=== PATIENT | female | born 1995 | race Caucasian/White ===

== ENCOUNTER 2019-05-24 19:55 | Emergency (ER) | payer OTHER, SELFPAY ==
[2019-05-24 19:59] VITALS: BP 129/78; PULSE 136; RESP 23; TEMP 37.9; O2SAT 99; BMI 43.9
--- NOTE | 2019-05-24 20:07 | DI.RAD.S_ITS ---
PROCEDURE: XR CHEST 2V INDICATIONS: cough for 3 weeks with chest heaviness TECHNIQUE: 2 views of the chest were acquired. COMPARISON: None. FINDINGS: Surgical changes and devices: None. Lungs and pleura: Lungs are clear. No pleural effusions or pneumothorax. Mediastinum: Mediastinal contours are normal. Heart size is normal. Bones and chest wall: No suspicious bony abnormalities. Soft tissues appear unremarkable. IMPRESSION: No acute cardiopulmonary abnormality identified. Dictated by: Ricardo Wright M.D. on 05/24/2019 at 20:36 Approved by: Ricardo Wright M.D. on 05/24/2019 at 20:37
[2019-05-24 20:44] LABS: Lactate (Lactic Acid) 1.2 mmol/L (0.7-2.1)
[2019-05-24 20:45] LABS: Influenza A - CEPHEID Flu A NEGATIVE (NEGATIVE); Influenza B - CEPHEID Flu B NEGATIVE (NEGATIVE)
[2019-05-24 20:45] LABS: Alanine Aminotransferase 49 IU/L (<35); Albumin 4.4 g/dL (3.5-5.0); Albumin Globulin Ratio 1.2 (1.0-2.8); Alkaline Phosphatase 90 U/L (38-126); Aspartate Aminotransferase 39 IU/L (14-36); BUN Creatinine Ratio 18.6 (6-22); Bilirubin Total 0.6 mg/dL (0.2-1.3); Blood Urea Nitrogen 13 mg/dL (7-17); Calcium 9.2 mg/dL (8.4-10.2); Carbon Dioxide 23 mmol/L (22-32); Chloride 105 mmol/L (98-107); Estimated Glomerular Filt Rate > 60.0 mL/min (>60); Globulin 3.6 g/dL (1.7-4.1); Glucose 105 mg/dL (70-100); HEMOLYSIS 26 (0-50); Potassium 3.9 mmol/L (3.4-5.1); Sodium 138 mmol/L (137-145)
[2019-05-24 20:49] LABS: Add Manual Diff / Slide Review NO; Basophils Absolute Auto 100 /uL (0-100); Basophils Percent Auto 0.6 % (0-2); Eosinophils Absolute Auto 100 /uL (0-450); Eosinophils Percent Auto 0.8 % (2-4); Hematocrit 41.7 % (36-46); Hemoglobin 14.2 g/dL (12.0-16.0); Lymphocytes Absolute Auto 1800 /uL (1100-4500); Lymphocytes Percent Auto 13.5 % (25-40); Mean Corpuscular Hemoglobin 32.4 PG (26-34); Mean Corpuscular Volume 95.4 fL (80-100); Monocytes Absolute Auto 800 /uL (0-900); Monocytes Percent Auto 6.5 % (3-14); Neutrophils Absolute Auto 10200 /uL (1500-7000); Neutrophils Percent Auto 78.6 % (50-75); Platelet Count 247 X10^3/uL (150-400); Red Blood Cell Count 4.38 X10^6/uL (4.0-5.2)
--- NOTE | 2019-05-24 20:59 | ED_ITS ---
HPI - URI/Sore Throat General Chief Complaint: Upper Respiratory Symptoms Stated Complaint: cough, chills Time Seen by Provider: 05/24/19 20:56 Source: patient Mode of arrival: Family Vehicle Limitations: no limitations History of Present Illness HPI Narrative: 24-year-old female smoker with morbid obesity presents with a chief complaint of 1-2 weeks of cough, usually dry but occasionally productive, fatigue and the low-grade fever. She denies runny nose or sore throat. She denies nausea, vomiting or diarrhea. She denies any shaking chills. She denies recent travel, surgery, injury or history of clot. MD Complaint: fever and cough Onset (ago): day(s) Duration: constant Severity: moderate Relieving factors: nothing Exacerbating factors: nothing Description of mucous: clear Able to tolerate fluids by mouth: Yes Associated symptoms: fever Treatments prior to arrival: none Related Data Previous Rx's Medication Instructions Recorded doxycycline hyclate 100 mg PO BID #20 tab 05/24/19 Allergies Allergy/AdvReac Type Severity Reaction Status Date / Time phenytoin [From Dilantin] Allergy Hives Verified 05/24/19 19:59 Review of Systems Constitutional Constitutional: Reports chills, Reports fatigue, Reports fever(s), Denies frequent falls, Denies lethargy and Denies weakness Eyes Eyes: Denies change in vision, Denies eye discharge, Denies irritation and Denies loss of vision ENT Ears, Nose, Mouth, and Throat: Denies change in voice, Denies dizziness, Denies neck pain, Denies sore throat and Denies throat swelling Cardiovascular Cardiovascular: Denies chest pain, Denies irregular heart rhythm, Denies lightheadedness, Denies palpitations, Denies dyspnea, Denies dyspnea on exertion and Denies orthopnea Respiratory Respiratory: Reports cough, Denies dyspnea, Denies dyspnea on exertion and Denies wheezing Gastrointestinal Gastrointestinal: Denies abdominal pain, Denies change in bowel habits, Denies diarrhea, Denies nausea and Denies vomiting Genitourinary Genitourinary: Denies hematuria, Denies flank pain, Denies urinary incontinence and Denies urinary urgency Musculoskeletal Musculoskeletal: Denies back pain, Denies muscle weakness, Denies neck pain, Denies numbness and Denies tingling Integumentary/Breasts Skin/Breast: Denies pruritus, Denies erythema, Denies rash and Denies wounds Neurologic Neurologic: Denies behavioral changes, Denies confusion, Denies dizziness, Denies frequent falls, Denies loss of vision, Denies numbness, Denies tingling and Denies weakness Psychiatric Psychiatric: Denies anxiety, Denies behavioral changes, Denies confusion, Denies depression, Denies homicidal ideation and Denies suicidal ideation Endocrine Endocrine: Reports fatigue, Denies flushing and Denies palpitations Hematologic/Lymphatic Hematologic/Lymphatic: Denies easy bruising Allergic/Immunologic Allergic/Immunologic: Denies urticaria, Denies throat swelling and Denies wheezing Patient History Social History Smoking Status: Current some day smoker Smoking Status: Current some day smoker Substance Use Type: does not use Exam Narrative Exam Narrative: GENERAL: [24] year old patient appears stated age. Morbidly obese, well-developed patient, in mild distress. HEAD: Atraumatic. Normocephalic. EYES: Pupils equal round and reactive. Extraocular motions intact. No scleral icterus. No injection or drainage. ENT: Nose without bleeding, purulent drainage. Throat without erythema, tonsillar hypertrophy or exudate. Airway patent. NECK: Trachea midline. Non tender CARDIOVASCULAR: Tachycardic but regular rhythm without murmurs, gallops, or rubs. RESPIRATORY: Clear to auscultation. Breath sounds equal bilaterally. No wheezes, rales, or rhonchi. GASTROINTESTINAL: Abdomen soft, non-tender, nondistended. EXTREMITIES: No edema or joint tenderness. BACK: Nontender without deformity or crepitance. No flank tenderness. NEURO: AOx3. SKIN: No rash or erythema of visible areas Initial Vital Signs Initial Vital Signs: Vital Signs Temperature 100.2 F H 05/24/19 19:59 Pulse Rate 136 H 05/24/19 19:59 Respiratory Rate 23 05/24/19 19:59 Blood Pressure 129/78 05/24/19 19:59 Pulse Oximetry 99 05/24/19 19:59 Course Course Course Narrative: Pulmonary embolism considered, it D-dimer very slightly elevated but still below the cutoff of 500. Chest x-ray is unremarkable but given symptoms and duration of symptoms it seems most reasonable to treat for an atypical pneumonia. Heart rate is improved from the 130s to 140s down to about 115 after 1 L, 2nd L ordered Orders Ordered: ED Orders 05/24/19 20:05 Influenza A & B (PCR) Stat 05/24/19 20:07 XR chest 2V Stat EKG-12 Lead Routine 05/24/19 20:12 Measure peak expiratory flow ONCE RT Consult Eval and Treat Now 05/24/19 20:25 Complete Blood Count AUTO DIFF Stat Comprehensive Metabolic Panel Stat D Dimer Stat Lactate (Lactic Acid) Stat Discontinued Medications Acetaminophen (Tylenol) 975 mg PO NOW ONE Stop: 05/24/19 22:06 Last Admin: 05/24/19 22:07 Dose: 975 mg Documented by: ELVIA Doxycycline Hyclate (Vibramycin) 100 mg PO NOW ONE Stop: 05/24/19 21:54 Last Admin: 05/24/19 22:01 Dose: 100 mg Documented by: ELVIA Sodium Chloride (Normal Saline 0.9%) 1,000 mls @ 1,000 mls/hr IV BOLUS ONE Stop: 05/24/19 22:23 Last Infusion: 05/24/19 22:30 Dose: 0 mls/hr Documented by: Admin: 05/24/19 21:26 Dose: 1,000 mls/hr Documented by: ELVIA Sodium Chloride (Normal Saline 0.9%) 1,000 mls @ 1,000 mls/hr IV BOLUS ONE Stop: 05/24/19 23:36 Last Infusion: 05/24/19 23:51 Dose: 0 mls/hr Documented by: Admin: 05/24/19 22:51 Dose: 1,000 mls/hr Documented by: ELVIA Vital Signs Vital signs: Vital Signs - 8 hr 05/24/19 19:59 05/24/19 21:20 05/24/19 22:07 Temperature 100.2 F H 100.6 F H Pulse Rate 136 H 133 H Respiratory Rate 23 18 Blood Pressure 129/78 Blood Pressure [Left Arm] 159/90 H Pulse Oximetry 99 96 05/24/19 22:13 Temperature Pulse Rate 117 H Respiratory Rate 18 Blood Pressure Blood Pressure [Left Arm] 159/90 H Pulse Oximetry 95 MDM - URI/Sore Throat Lab Data Result diagrams: 05/24/19 20:25 05/24/19 20:25 Labs: Lab Results 05/24/19 05/24/19 05/24/19 Range/Units 20:05 20:25 20:25 WBC 13.0 H (4.5-11.0) X10^3/uL RBC 4.38 (4.0-5.2) X10^6/uL Hgb 14.2 (12.0-16.0) g/dL Hct 41.7 (36-46) % MCV 95.4 (80-100) fL MCH 32.4 (26-34) PG MCHC 34.0 (30-36) % RDW 13.0 (11.6-14.8) % Plt Count 247 (150-400) X10^3/uL Neut % (Auto) 78.6 H (50-75) % Lymph % (Auto) 13.5 L (25-40) % Davison % (Auto) 6.5 (3-14) % Eos % (Auto) 0.8 L (2-4) % Baso % (Auto) 0.6 (0-2) % Neut # (Auto) 96600 H (3993-9536) /uL Lymph # (Auto) 1800 (9451-9701) /uL Davison # (Auto) 800 (0-900) /uL Eos # (Auto) 100 (0-450) /uL Baso # (Auto) 100 (0-100) /uL D-Dimer (<230) ng/mL Sodium 138 (137-145) mmol/L Potassium 3.9 (3.4-5.1) mmol/L Chloride 105 (98-107) mmol/L Carbon Dioxide 23 (22-32) mmol/L BUN 13 (7-17) mg/dL Creatinine 0.70 (0.52-1.04) mg/dL Estimated GFR > 60.0 (>60) mL/min BUN/Creatinine Ratio 18.6 (6-22) Glucose 105 H (70-100) mg/dL Lactate (0.7-2.1) mmol/L Calcium 9.2 (8.4-10.2) mg/dL Total Bilirubin 0.6 (0.2-1.3) mg/dL AST 39 H (14-36) IU/L ALT 49 H (<35) IU/L Alkaline Phosphatase 90 (38-126) U/L Total Protein 8.0 (6.3-8.2) g/dL Albumin 4.4 (3.5-5.0) g/dL Globulin 3.6 (1.7-4.1) g/dL Albumin/Globulin Ratio 1.2 (1.0-2.8) Influenza A (RT-PCR) Flu a negative (NEGATIVE) Influenza B (RT-PCR) Flu b negative (NEGATIVE) 05/24/19 05/24/19 Range/Units 20:25 20:25 WBC (4.5-11.0) X10^3/uL RBC (4.0-5.2) X10^6/uL Hgb (12.0-16.0) g/dL Hct (36-46) % MCV (80-100) fL MCH (26-34) PG MCHC (30-36) % RDW (11.6-14.8) % Plt Count (150-400) X10^3/uL Neut % (Auto) (50-75) % Lymph % (Auto) (25-40) % Davison % (Auto) (3-14) % Eos % (Auto) (2-4) % Baso % (Auto) (0-2) % Neut # (Auto) (6228-3580) /uL Lymph # (Auto) (1659-9654) /uL Davison # (Auto) (0-900) /uL Eos # (Auto) (0-450) /uL Baso # (Auto) (0-100) /uL D-Dimer 247 H (<230) ng/mL Sodium (137-145) mmol/L Potassium (3.4-5.1) mmol/L Chloride (98-107) mmol/L Carbon Dioxide (22-32) mmol/L BUN (7-17) mg/dL Creatinine (0.52-1.04) mg/dL Estimated GFR (>60) mL/min BUN/Creatinine Ratio (6-22) Glucose (70-100) mg/dL Lactate 1.2 (0.7-2.1) mmol/L Calcium (8.4-10.2) mg/dL Total Bilirubin (0.2-1.3) mg/dL AST (14-36) IU/L ALT (<35) IU/L Alkaline Phosphatase (38-126) U/L Total Protein (6.3-8.2) g/dL Albumin (3.5-5.0) g/dL Globulin (1.7-4.1) g/dL Albumin/Globulin Ratio (1.0-2.8) Influenza A (RT-PCR) (NEGATIVE) Influenza B (RT-PCR) (NEGATIVE) Discharge Plan Departure Patient Disposition: Home Clinical Impression: Atypical pneumonia Discharge Date/Time: 05/24/19 23:52 Instructions: DI for Atypical Pneumonia Activity Restrictions/Additional Instructions: *You have been diagnosed with [atypical pneumonia] *What to do: *Take medications as directed *Follow up with your primary care provider in 2-3 days, call for an appointment. Let them know you were seen in the Emergency Department and that we ask that you be seen in follow up *Return to ER if you should have any new, worsening or concerning symptoms Prescriptions: New doxycycline hyclate 100 mg tablet 100 mg PO BID Qty: 20 RF: 0 Stand Alone Forms: Work/School Release
[2019-05-24 21:20] VITALS: BP 159/90; PULSE 133; RESP 18; O2SAT 96
[2019-05-24] MEDS: SODIUM CHLORIDE 0.9% 1,000 ML 1000 ML IV ×2 (21:26→22:51)
[2019-05-24 21:42] LABS: D Dimer 247 ng/mL (<230)
[2019-05-24] MEDS: DOXYCYCLINE HYCLATE 100 MG TABLET PO (22:01)
[2019-05-24 22:07] VITALS: TEMP 38.1
[2019-05-24] MEDS: ACETAMINOPHEN 325 MG TABLET 975 MG PO (22:07)
[2019-05-24 22:13] VITALS: BP 159/90; PULSE 117; RESP 18; O2SAT 95
== END 2019-05-24 23:52 | disposition home or self-care (01) ==
PROVIDERS: Emergency Provider Emergency Medicine
DX: J18.9 Pneumonia, unspecified organism (principal)
CPT/HCPCS: 36415; 71046; 80053; 83605; 85025; 85379; 87502; 93005; 96360; 96361; 99284; 99285

== ENCOUNTER 2019-06-10 18:31 | Emergency (ER) | payer OTHER, SELFPAY ==
--- NOTE | 2019-06-10 18:54 | DI.RAD.S_ITS ---
PROCEDURE: XR FOOT RT MIN 3V INDICATIONS: right ankle twisted in a pot hole TECHNIQUE: 3 views of the foot were acquired. COMPARISON: None. FINDINGS: Bones: No fractures or dislocations. No suspicious bony lesions. Soft tissues: No tibiotalar joint effusion. Achilles tendon appears normal. IMPRESSION: No gross acute right foot fracture or dislocation. Dictated by: Juan Jose Clancy M.D. on 06/10/2019 at 19:14 Approved by: Juan Jose Clancy M.D. on 06/10/2019 at 19:14
[2019-06-10 18:55] VITALS: BP 170/94; PULSE 87; RESP 16; TEMP 37.4; O2SAT 99; BMI 46.0
--- NOTE | 2019-06-10 19:18 | ED.LOWEXIN ---
HPI - Extremity Injury (Lower) General Chief Complaint: Extremity Injury, Lower Stated Complaint: twisted ankle-right Time Seen by Provider: 06/10/19 19:18 Source: patient Mode of arrival: Family Vehicle Limitations: no limitations Related Data Previous Rx's Medication Instructions Recorded doxycycline hyclate 100 mg PO BID #20 tab 05/24/19 Allergies Allergy/AdvReac Type Severity Reaction Status Date / Time phenytoin [From Dilantin] Allergy Hives Verified 06/10/19 18:59 Patient History Social History Smoking Status: Former smoker Smoking Status: Former smoker alcohol intake frequency: holidays/special occasions only Substance Use Type: does not use Exam Initial Vital Signs Initial Vital Signs: Vital Signs Temperature 99.3 F 06/10/19 18:55 Pulse Rate 87 06/10/19 18:55 Respiratory Rate 16 06/10/19 18:55 Blood Pressure 170/94 H 06/10/19 18:55 Pulse Oximetry 99 06/10/19 18:55 Course Orders Ordered: ED Orders 06/10/19 18:54 XR foot RT min 3V Stat Vital Signs Vital signs: Vital Signs - 8 hr 06/10/19 18:55 Temperature 99.3 F Pulse Rate 87 Respiratory Rate 16 Blood Pressure 170/94 H Pulse Oximetry 99 Discharge Plan Departure Prescriptions: No Action doxycycline hyclate 100 mg tablet 100 mg PO BID Qty: 20 RF: 0
[2019-06-10 19:35] VITALS: PULSE 72
--- NOTE | 2019-06-10 19:38 | DI.RAD.S_ITS ---
PROCEDURE: XR ANKLE RT MIN 3V INDICATIONS: s/p inverted foot, pain in lateral ankle TECHNIQUE: 3 views of the ankle were acquired. COMPARISON: None. FINDINGS: Bones: No fractures or dislocations. Ankle mortise is normally aligned. No suspicious bony lesions. Soft tissues: Lateral ankle soft tissue swelling is seen. No tibiotalar joint effusion. Achilles tendon appears normal. IMPRESSION: Lateral ankle soft tissue swelling. No gross acute ankle fracture or dislocation. Dictated by: Juan Jose Clancy M.D. on 06/10/2019 at 19:53 Approved by: Juan Jose Clancy M.D. on 06/10/2019 at 19:54
[2019-06-10] MEDS: ACETAMINOPHEN 325 MG TABLET 650 MG PO (19:50)
[2019-06-10] MEDS: IBUPROFEN 400 MG TABLET 800 MG PO (19:50)
--- NOTE | 2019-06-10 19:57 | ED_ITS ---
HPI - Extremity Injury (Lower) <JEAN HoffP - Last Filed: 06/10/19 20:17> General Chief Complaint: Extremity Injury, Lower Stated Complaint: twisted ankle-right Time Seen by Provider: 06/10/19 19:18 Source: patient Mode of arrival: Family Vehicle Limitations: no limitations History of Present Illness HPI Narrative: This is a 24-year-old female, former smoker, who presents to ED with significant other with chief complain of right lateral ankle discomfort. Patient reports affected foot got stuck in a pothole and accidentally inverted her foot and heard and felt popping sound with grinding sensation in her left ankle. When patient attempted to remove her right foot from a pothole, it felt stuck and when it finally was removed from a pothole and forcefully landed on of right heel and felt/her popping noise and grinding sensation again. Patient reports at rest pain is not significant but when she bears her weight fully and when it is touched the pain increases. Patient reports intact sensation and is able to move her toes. Patient reports she has history of right ankle injury at age 13 but does not report residual problems. Patient denies falling on her head, losing consciousness, pain in her hips or knees. Related Data Previous Rx's Medication Instructions Recorded doxycycline hyclate 100 mg PO BID #20 tab 05/24/19 Allergies Allergy/AdvReac Type Severity Reaction Status Date / Time phenytoin [From Dilantin] Allergy Hives Verified 06/10/19 18:59 Review of Systems <JEAN HoffP - Last Filed: 06/10/19 20:17> Review of Systems Narrative: General: Denies fever, chills, fatigue, malaise, sweats. HEENT: Denies sinus pain, ear pain, sore throat, difficulty swallowing, dizziness. Respiratory: Denies dyspnea, cough, wheezing, hemoptysis, sputum. Cardiovascular: Denies chest pain, palpitations, orthopnea, edema. Gastrointestinal: Denies nausea, vomiting, abdominal pain, diarrhea, constipation, melena. : Denies dysuria, frequency, incontinence, hematuria, urinary retention. Musculoskeletal: See HPI Skin: Denies rash, skin lesions, or other. Neurologic: Denies weakness, headache, numbness, change in speech, confusion, seizures, incoordination. Psychiatric: No concerning psychosocial issues. 12-point review of systems is negative except for those stated above. Patient History <DOUG Hoff - Last Filed: 06/10/19 20:17> Medical History Depression (Acute) Hypertension (Acute) Tachycardia (Acute) Tonsillitis (Acute) Social History Smoking Status: Former smoker Smoking Status: Former smoker alcohol intake frequency: holidays/special occasions only Substance Use Type: does not use Exam <DOUG Hoff - Last Filed: 06/10/19 20:17> Narrative Exam Narrative: General appearance: well developed, well nourished, in no acute distress. Head: normocephalic, atraumatic, no scalp lesions, non-tender. ENT: Hearing grossly intact. Nose without bleeding, purulent discharge or deviation. Mucous membrane moist, no mucosal lesion. Throat without erythema, tonsillar hypertrophy or exudate. Uvula in midline, airway patent. Neck/Thyroid: neck supple, full range of motion, no visible masses or meningeal signs. No JVD, non-tender without lymphadenopathy. Skin: no suspicious rashes, lesions over visible areas. Warm and dry and appropriate color for ethnicity. Heart: no clubbing, no cyanosis, no edema. S1 and S2 normal. RRR w/o murmurs, clicks, or bruits. Lungs: Breathing even and unlabored. No stridor. No accessory muscles used. Able to speak in full sentences. Chest: normal shape and expansion. Abdomen: non-obese, non-distended. Neurologic: alert and oriented. Cognitive exam, THEATRE DIRECT[employer] and PNS grossly intact on informal exam. Psych: good eye contact, normal affect. Initial Vital Signs Initial Vital Signs: Vital Signs Temperature 99.3 F 06/10/19 18:55 Pulse Rate 87 06/10/19 18:55 Respiratory Rate 16 06/10/19 18:55 Blood Pressure 170/94 H 06/10/19 18:55 Pulse Oximetry 99 06/10/19 18:55 Extrem Right lower extremity: hip/thigh Details: normal ROM; no tenderness and no swelling, knee Details: normal to inspection and normal ROM; no tenderness and no swelling, ankle Details: tenderness Location: of the lateral malleolus, s welling Details: laterally, abnormal ROM Details: pain with active ROM and pain with passive ROM and achilles tendon exam abnormal; no unusual warmth, no abrasions, no lacerations, no ecchymosis and no penetrating wound and foot Details: normal capillary refill, normal to inspection, toes with normal ROM, no edema, vascular exam Details: dorsalis pedis pulse present and normal capillary refill and motor-sensory exam Details: light-touch normal; no tenderness <Latrell Bennett DO - Last Filed: 06/11/19 03:33> Initial Vital Signs Initial Vital Signs: Vital Signs Temperature 99.3 F 06/10/19 18:55 Pulse Rate 87 06/10/19 18:55 Respiratory Rate 16 06/10/19 18:55 Blood Pressure 170/94 H 06/10/19 18:55 Pulse Oximetry 99 06/10/19 18:55 Procedures <DOUG Hoff - Last Filed: 06/10/19 20:17> Orthopedic Splinting/Casting Injury #1: Side: right Lower Extremity Injury Location: ankle Lower Extremity Immobilizer: [employer]Cast Other Orthopedic Equipment: crutches Post splinting neuro exam: intact Post splinting vascular exam: intact Placed by: Nursing Scores <DOUG Hoff Last Filed: 06/10/19 20:17> GCS [place] coma scale eye opening: Spontaneous [place] coma scale verbal response: Orientated [place] coma scale motor response: Obey commands [place] coma scale total score: 15 Course <DOUG Hoff Last Filed: 06/10/19 20:17> Orders Ordered: ED Orders 06/10/19 18:54 XR foot RT min 3V Stat 06/10/19 19:38 XR ankle RT min 3V Stat Discontinued Medications Acetaminophen (Tylenol) 650 mg PO NOW ONE Stop: 06/10/19 19:39 Last Admin: 06/10/19 19:50 Dose: 650 mg Documented by: TYREE Ibuprofen (Advil) 800 mg PO NOW ONE Stop: 06/10/19 19:39 Last Admin: 06/10/19 19:50 Dose: 800 mg Documented by: TYREE Vital Signs Vital signs: Vital Signs - 8 hr 06/10/19 19:35 06/10/19 20:38 Pulse Rate 84 Pulse Rate [Dorsalis Pedis] 72 Respiratory Rate 16 Blood Pressure [Left Arm] 158/88 H Pulse Oximetry 98 <Latrell Bennett DO - Last Filed: 06/11/19 03:33> Orders Ordered: ED Orders 06/10/19 18:54 XR foot RT min 3V Stat 06/10/19 19:38 XR ankle RT min 3V Stat Discontinued Medications Acetaminophen (Tylenol) 650 mg PO NOW ONE Stop: 06/10/19 19:39 Last Admin: 06/10/19 19:50 Dose: 650 mg Documented by: TYREE Ibuprofen (Advil) 800 mg PO NOW ONE Stop: 06/10/19 19:39 Last Admin: 06/10/19 19:50 Dose: 800 mg Documented by: TYREE Vital Signs Vital signs: Vital Signs - 8 hr 06/10/19 19:35 06/10/19 20:38 Pulse Rate 84 Pulse Rate [Dorsalis Pedis] 72 Respiratory Rate 16 Blood Pressure [Left Arm] 158/88 H Pulse Oximetry 98 MDM - Extremity Injury (Lower) <DOUG Hoff - Last Filed: 06/10/19 20:17> Differential Diagnosis Differential diagnosis: Likely ankle sprain and strain and ankle fracture Medical Records Attestation: I reviewed the patient's medical records. Imaging Data XR-Foot RT: Radiologist's Impression: [place] [address] XRay Report Signed Patient: Vita Hernandez [facility]#: [id number] : 1995Acct:[id number] Age/Sex: 24 / FDate of Service: 06/10/19 Loc: ED Accession Number: [id number] Procedure: XR foot RT min 3V Ordering Provider: Latrell Bennett D.O. PROCEDURE: XR FOOT RT MIN 3V INDICATIONS: right ankle twisted in a pot hole TECHNIQUE: 3 views of the foot were acquired. COMPARISON: None. FINDINGS: Bones: No fractures or dislocations. No suspicious bony lesions. Soft tissues: No tibiotalar joint effusion. Achilles tendon appears normal. IMPRESSION: No gross acute right foot fracture or dislocation. Dictated by: Juan Jose Clancy M.D. on 06/10/2019 at 19:14 Approved by: Juan Jose Clancy M.D. on 06/10/2019 at 19:14 XR-Ankle RT: Radiologist's Impression: [address] [address] XRay Report Signed Patient: Vita Hernandez [facility]#: [id number] : 1995Acct:[id number] Age/Sex: 24 / FDate of Service: 06/10/19 Loc: ED Accession Number: [id number] Procedure: XR ankle RT min 3V Ordering Provider: Adair Cordova PROCEDURE: XR ANKLE RT MIN 3V INDICATIONS: s/p inverted foot, pain in lateral ankle TECHNIQUE: 3 views of the ankle were acquired. COMPARISON: None. FINDINGS: Bones: No fractures or dislocations. Ankle mortise is normally aligned. No suspicious bony lesions. Soft tissues: Lateral ankle soft tissue swelling is seen. No tibiotalar joint effusion. Achilles tendon appears normal. IMPRESSION: Lateral ankle soft tissue swelling. No gross acute ankle fracture or dislocation. Dictated by: Juan Jose Clancy M.D. on 06/10/2019 at 19:53 Approved by: Juan Jose Clancy M.D. on 06/10/2019 at 19:54 MDM Narrative Medical decision making narrative: This is 24-year-old female status post inverted her right foot after stuck in a pothole. Patient reports maximum tenderness to palpate in lateral malleolar region and swelling noticed. Dorsal pedal pulse on right foot distal to injury site is intact. Patient is able to move toes without difficulty. X-rays on right foot and ankle does not show acute findings such as fractures or dislocation. Patient was treated with Tylenol and Motrin while in ED for pain along ice packs. Discussed RICE therapy for inflammation and discomfort and patient discharged to home with prefabricated ankle splint and crutches for mobility. Return precautions were discussed with the patient and patient provided with a work off note for 2 days. Patient verbalized understanding and in agreement with treatment plan. Discharge Plan Departure Patient Disposition: Home Clinical Impression: Ankle sprain and strain Discharge Date/Time: 06/10/19 20:38 Instructions: DI for Ankle Sprain Activity Restrictions/Additional Instructions: You have been diagnosed with [right ankle sprain. There is no acute findings according to ankle and foot x-ray tests today. Please use RICE therapy-rest, cool pack for next 24-48 hrs, compression by using splint that has been provided and elevated affected limb]. What to do: *Take your medications as directed. You can continue to use Tylenol and or Motrin as needed for discomfort. Ibuprofen 400 mg to 600 mg 3 to 4 times a day as needed for discomfort and inflammation. Tylenol 650-1000 mg up to 4 times a day as needed for discomfort. *Follow up with your primary care provider in 2-3 days, call for an appointment. Let them know you were seen in the ED and that we asked you to be seen in follow up. If pain persists greater than 10 days to 2 weeks, please follow up with her primary care physician and get repeated x-ray test on affected ankle. After acute pain has subsided, please stretching affected ankle. *Return to ED if you have any new, worsening, or concerning symptoms, such as [chest pain, breathing difficulty, unable to tolerate fluids, weakness/numbness/tingling on affected foot or any acute concerns]. Prescriptions: No Action doxycycline hyclate 100 mg tablet 100 mg PO BID Qty: 20 RF: 0 Referrals: [facility] [Outside] Stand Alone Forms: Work Release Note
[2019-06-10 20:38] VITALS: BP 158/88; PULSE 84; RESP 16; O2SAT 98
== END 2019-06-10 20:38 | disposition home or self-care (01) ==
PROVIDERS: Emergency Provider Nurse Practitioner Family
DX: S93.401A Sprain of unspecified ligament of right ankle, initial encounter (principal); S96.911A Strain of unspecified muscle and tendon at ankle and foot level, right foot, initial encounter
CPT/HCPCS: 73610; 73630; 99283; 99284

== ENCOUNTER 2019-08-29 18:12 | Emergency (ER) | payer OTHER, SELFPAY ==
[2019-08-29 18:19] VITALS: BP 184/98; PULSE 81; RESP 20; O2SAT 98; BMI 44.3
--- NOTE | 2019-08-29 18:22 | DI.RAD.S_ITS ---
PROCEDURE: XR HAND LT MIN 3V INDICATIONS: swelling TECHNIQUE: 3 views of the hand(s) acquired. COMPARISON: None. FINDINGS: Bones: There is a fracture in the 5th metacarpal proximally with mild impaction and slight radial sided and angulation. There is suspected extension to the 5th carpometacarpal joint. Soft tissues: There is soft tissue swelling along the ulnar aspect of the hand. IMPRESSION: 1. Fracture of the 5th metacarpal proximally with suspected articular extension. Dictated by: Eric Beard M.D. on 08/29/2019 at 19:08 Approved by: Eric Beard M.D. on 08/29/2019 at 19:10
--- NOTE | 2019-08-29 18:23 | DI.RAD.S_ITS ---
PROCEDURE: XR FOREARM RT 2V INDICATIONS: swelling TECHNIQUE: 2 views of the forearm were acquired. COMPARISON: [facility], CR, XR ANKLE RT MIN 3V, 06/10/2019, 19:35. [facility], CR, XR HAND LT MIN 3V, 08/29/2019, 18:26. FINDINGS: Bones: No fractures or dislocation in the forearm. A mildly impacted fracture of the base of the 5th metacarpal is noted on the current study. Soft tissues: No suspicious soft tissue calcifications or masses. IMPRESSION: 1. No fracture or dislocation in the forearm. 2. Fracture of the 5th metacarpal base as described on the concurrent study of the hand. Dictated by: Eric Beard M.D. on 08/29/2019 at 19:04 Approved by: Eric Beard M.D. on 08/29/2019 at 19:08
--- NOTE | 2019-08-29 18:35 | PC.NURSE ---
tripped and fell, obtained left hand deformity/swelling/pain, denies head injury denies loc/neck pain also with left knee superficial abrasion, with full range of motion. on arrival left knee irrigated with ns, tolerated well. left hand irrigated with ns, tolerated welll. ice pack applied/elevation.
--- NOTE | 2019-08-29 18:41 | ED_ITS ---
HPI - Extremity Injury (Upper) <Denisha Yung PA-C - Last Filed: 08/29/19 21:52> General Chief Complaint: Extremity Injury, Upper Stated Complaint: Fell/ Hurt left hand/wrist Time Seen by Provider: 08/29/19 18:41 Source: patient Mode of arrival: Ambulatory Limitations: no limitations History of Present Illness HPI narrative: This is an obese 24-year-old with hx of HTN who presents to the emergency department shortly after she fell injuring her left hand. She was walking on the sidewalk and there was an area that was uneven concrete that she caught with her foot which caused her to fall forward and she did not want to land directly on her face so she put her left hand and arm out to catch her fall and took most of the weight with the outside lateral edge of her left hand. She had immediate pain and since then has had some tingling sensation in the tips of her fingers like ?when your arm falls asleep when you sleep on top of it? she has also had some swelling in the area of her upper left hand and a little bit into her wrist. It is painful to move her fingers and slightly painful to move her wrist although she is able to do so. She was self splinting her arm/hand on the drive up from [place]. She denies numbness, changes sensation, prodrome of dizziness or palpitations, hitting her head, or any other injury. This is an isolated complaint and she has otherwise been in her normal state of health. complaint: injury to: left and hand Onset (ago): minute(s) (40) Other Extremity Injury: Left: hand Other injuries: none Handedness: right Place: outdoors Severity: moderate Severity scale (1-10): 3 Relieving factors: cold therapy, immobilization and rest Exacerbating factors: movement of extremity Context: fall Associated symptoms: denies other symptoms Related Data Previous Rx's Medication Instructions Recorded doxycycline hyclate 100 mg PO BID #20 tab 05/24/19 Allergies Allergy/AdvReac Type Severity Reaction Status Date / Time phenytoin [From Dilantin] Allergy Hives Verified 06/10/19 18:59 Review of Systems <Denisha Yung PA-C - Last Filed: 08/29/19 21:52> Review of Systems Narrative: GENERAL: Denies chills, fatigue, malaise, fever, sweats. HEENT: Denies sinus pain, ear pain, sore throat, difficulty swallowing, dizziness. RESPIRATORY: Denies dyspnea, cough, wheezing, hemoptysis, sputum. CARDIOVASCULAR: Denies chest pain, palpitations, orthopnea, edema MUSCULOSKELETAL: Positive for pain in her left hand along with some tingling sensation in her fingertips in some sharp pain in her hand when she presses on it. Denies weakness. SKIN: Denies rash, skin lesions, or other NEUROLOGIC: Denies weakness, headache, numbness, change in speech, confusion, seizures, incoordination. PSYCHIATRIC: No concerning psychosocial issues. 12 point review of systems is negative except for those stated above Patient History <Denisha Yung PA-C - Last Filed: 08/29/19 21:52> Medical History Depression (Acute) Hypertension (Acute) Tachycardia (Acute) Tonsillitis (Acute) Social History Smoking Status: Former smoker Smoking Status: Former smoker alcohol intake frequency: holidays/special occasions only Substance Use Type: does not use Exam <Denisha Yung PA-C - Last Filed: 08/29/19 21:52> Narrative Exam Narrative: GENERAL: 24 year old patient appears stated age. Well-nourished, morbidly patient, in mild distress second to pain. HEAD: Atraumatic. Normocephalic. EYES: Pupils equal round and reactive. Extraocular motions intact. No scleral icterus. No injection or drainage. ENT: Nose without bleeding, purulent drainage. Lips/oropharynx atraumatic, Airway patent. NECK: Trachea midline. Non tender CARDIOVASCULAR: Regular rate and rhythm without murmurs, gallops, or rubs. RESPIRATORY: Clear to auscultation. Breath sounds equal bilaterally. No wheezes, rales, or rhonchi. EXTREMITIES: There is swelling of the medial proximal hand over the area of the 5th metacarpal and wrist. There is slight bluish bruising visible on the anter ior medial palm over the area of the 4th and 5th metacarpals. There is tenderness over the 4th and 5th metacarpals and tenderness with manipulation of the carpals and distal ulna, with bony tenderness and associated sharp pain over the 5th metacarpal. There is very superficial abrasion of the skin of the left medial wrist and left proximal hand. Otherwise no edema or joint tenderness. Range of motion of the left wrist elbow and shoulder is intact, range of motion of 1st 2nd and 3rd digits is also intact with slight pain with flexion of the 3rd digit. Significant pain with movement of the 4th and 5th digits. Capillary refill in all digits of the affected hand is less than 2 seconds, sensation is intact. BACK: Nontender without deformity or crepitance. No flank tenderness. NEURO: AOx3. SKIN: No rash or erythema of visible areas Initial Vital Signs Initial Vital Signs: Vital Signs Pulse Rate 81 08/29/19 18:19 Respiratory Rate 20 08/29/19 18:19 Blood Pressure 184/98 H 08/29/19 18:19 Pulse Oximetry 98 08/29/19 18:19 <Lisa De La Torre MD - Last Filed: 08/29/19 23:05> Initial Vital Signs Initial Vital Signs: Vital Signs Pulse Rate 81 08/29/19 18:19 Respiratory Rate 20 08/29/19 18:19 Blood Pressure 184/98 H 08/29/19 18:19 Pulse Oximetry 98 08/29/19 18:19 Course <Denisha Yung PA-C - Last Filed: 08/29/19 21:52> Orders Ordered: ED Orders 08/29/19 18:22 XR hand LT min 3V Stat 08/29/19 18:23 XR forearm LT 2V Stat 08/29/19 19:25 Consult to Orthopedic Surgery Stat Discontinued Medications Acetaminophen (Tylenol) 650 mg PO Q6HR PRN PRN Reason: Fever/Mild Pain (1-3) Last Admin: 08/29/19 19:27 Dose: 650 mg Documented by: MMCFARL Ibuprofen (Advil) 800 mg PO NOW ONE Stop: 08/29/19 19:21 Last Admin: 08/29/19 19:27 Dose: 800 mg Documented by: MMCFARL Lidocaine/Sodium Bicarbonate (Buffered Lidocaine 10 Ml Syr) 10 ml INJ NOW ONE Stop: 08/29/19 20:12 Consultations Consultation #1: Consult to orthopedics for 5th metacarpal fx /possible extension to meta carpophalangeal joint. Dr. Miller ultimately saw the patient in the ED and states she can get the patient in to be seen for surgery/pinning likely on Tuesday. Ok to do splint without reduction in the ED. She requested a COVID test as pt will be going in for surgery likely Tuesday. 20:49 Vital Signs Vital signs: Vital Signs - 8 hr 08/29/19 18:19 08/29/19 21:24 Pulse Rate 81 77 Respiratory Rate 20 18 Blood Pressure 184/98 H 161/89 H Pulse Oximetry 98 98 <Lisa De La Torre MD - Last Filed: 08/29/19 23:05> Orders Ordered: ED Orders 08/29/19 18:22 XR hand LT min 3V Stat 08/29/19 18:23 XR forearm LT 2V Stat 08/29/19 19:25 Consult to Orthopedic Surgery Stat Discontinued Medications Acetaminophen (Tylenol) 650 mg PO Q6HR PRN PRN Reason: Fever/Mild Pain (1-3) Last Admin: 08/29/19 19:27 Dose: 650 mg Documented by: MMCFARL Ibuprofen (Advil) 800 mg PO NOW ONE Stop: 08/29/19 19:21 Last Admin: 08/29/19 19:27 Dose: 800 mg Documented by: MMCFARL Lidocaine/Sodium Bicarbonate (Buffered Lidocaine 10 Ml Syr) 10 ml INJ NOW ONE Stop: 08/29/19 20:12 Vital Signs Vital signs: Vital Signs - 8 hr 08/29/19 18:19 08/29/19 21:24 Pulse Rate 81 77 Respiratory Rate 20 18 Blood Pressure 184/98 H 161/89 H Pulse Oximetry 98 98 MDM - Extremity Injury (Upper) <Denisha Yung PA-C - Last Filed: 08/29/19 21:52> Differential Diagnosis Differential diagnosis: Likely fracture of hand Medical Records Attestation: I reviewed the patient's medical records. Imaging Data Extremity x-ray #1: Attestation: I personally reviewed and interpreted this imaging study as follows: Radiologist's Impression: [address] [address] XRay Report Signed Patient: Vita Hernandez [facility]#: [id number] : 1995Acct:[id number] Age/Sex: 24 / FDate of Service: 08/29/19 Loc: ED Accession Number: [id number] Procedure: XR forearm LT 2V Ordering Provider: Lisa De La Torre MD PROCEDURE: XR FOREARM RT 2V INDICATIONS: swelling TECHNIQUE: 2 views of the forearm were acquired. COMPARISON: [facility], CR, XR ANKLE RT MIN 3V, 06/10/2019, 19:35. [facility], CR, XR HAND LT MIN 3V, 08/29/2019, 18:26. FINDINGS: Bones: No fractures or dislocation in the forearm. A mildly impacted fracture of the base of the 5th metacarpal is noted on the current study. Soft tissues: No suspicious soft tissue calcifications or masses. IMPRESSION: 1. No fracture or dislocation in the forearm. 2. Fracture of the 5th metacarpal base as described on the concurrent study of the hand. Dictated by: Eric Beard M.D. on 08/29/2019 at 19:04 Approved by: Eric Beard M.D. on 08/29/2019 at 19:08 Extremity x-ray #2: Attestation: I personally reviewed and interpreted this imaging study as follows: Radiologist's Impression: [place] [address] XRay Report Signed Patient: Vita Hernandez [facility]#: [id number] : 1995Acct:[id number] Age/Sex: 24 / FDate of Service: 08/29/19 Loc: ED Accession Number: [id number] Procedure: XR hand LT min 3V Ordering Provider: Lisa De La Torre MD PROCEDURE: XR HAND LT MIN 3V INDICATIONS: swelling TECHNIQUE: 3 views of the hand(s) acquired. COMPARISON: None. FINDINGS: Bones: There is a fracture in the 5th metacarpal proximally with mild impaction and slight radial sided and angulation. There is suspected extension to the 5th carpometacarpal joint. Soft tissues: There is soft tissue swelling along the ulnar aspect of the hand. IMPRESSION: 1. Fracture of the 5th metacarpal proximally with suspected articular extension. Dictated by: Eric Beard M.D. on 08/29/2019 at 19:08 Approved by: Eric Beard M.D. on 08/29/2019 at 19:10 [facility] Narrative Medical decision making narrative: This is a generally healthy morbidly obese young woman with a history of hypertension who presents to the emergency department with left hand and wrist pain after sustaining a fall just before presenting to the ED. She had no other injuries or complaints and labs were not obtained. She is neurovascularly intact by exam and x-ray showed a 5th metacarpal proximal fracture with slight radial side angulation and possible extension to the 5th metacarpophalangeal joint. After consultation with attending and Dr. Miller, on-call orthopedist who also saw the patient in the emergency department, she was placed in an ulnar gutter splint and sling and was discharged with tentative plans for surgery on Tuesday with Dr. Miller. Reassessment after splinting showed her to still be neurovascularly intact with a comfortable splint in place. She was provided with return precautions and all questions were answered. Discharge Plan Departure Patient Disposition: Home Clinical Impression: Hand pain, left Fracture of base of fifth metacarpal bone of left hand Qualifiers: Encounter type: initial encounter Fracture type: closed Fracture alignment: displaced Qualified Code(s): S62.317A - Displaced fracture of base of fifth meta carpal bone, left hand, initial encounter for closed fracture Discharge Date/Time: 08/29/19 21:24 Instructions: DI for a Hand Fracture, DI for Fracture, How To Perform RICE (Rest, Ice, Compress, Elevate) Activity Restrictions/Additional Instructions: Thank you very much for letting us to be part of your care today in the emergency department. There is no evidence of an emergent or life threatening illness at this time, but follow up with your doctor in 1-2 days is recommended nonetheless to continue to rule out serious underlying causes of your symptoms. Please call the office for an appointment. Please return to the Emergency Department for any worsening or persistent symptoms. You do however have a fracture of your 5th metacarpal which is the bone in her hand at the base of her pinky the fracture is proximal and near your rest and is just slightly angulated or displaced. We discussed options for pain control and you stated that you prefer to just take Tylenol and ibuprofen which is appropriate. The orthopedic doctor Dr. Miller also saw you in emergency department and has been a plan for you to follow-up with her for surgery this Tuesday. Until that time he should continue to keep the splint on that was placed in the emergency department during her visit. However you should monitor for any change in color to your hand or finger tips or arm including turning pale, blue or purple in color or any increased pain or increased swelling of this would be reasons to seek medical care. You should keep the splint dry as well. I have also provided you with a note for work. The orthopedic doctor can also give you a work note as needed after your surgery depending on how long she needs you to be out from work. Prescriptions: No Action doxycycline hyclate 100 mg tablet 100 mg PO BID Qty: 20 RF: 0 Referrals: Katie Miller MD [Physician] - Arlin Jasso ARNP [Primary Care Provider] - Stand Alone Forms: Work Release Note <Lisa De La Torre MD - Last Filed: 08/29/19 23:05> [facility] Att[facility]: I was immediately available in the department for consultation throughout this patient's visit. I agree with documentation as above. Lisa De La Torre MD
[2019-08-29] MEDS: IBUPROFEN 400 MG TABLET 800 MG PO (19:27)
[2019-08-29] MEDS: ACETAMINOPHEN 325 MG TABLET 650 MG PO (19:27)
--- NOTE | 2019-08-29 21:17 | PM.CN ---
History of Present Illness Consult details Date Patient Seen: 08/29/19 Time Patient Seen: 21:17 Chief complaint: Fell/ Hurt left hand/wrist Reason for consult: Left 5th metacarpal fracture Requesting provider: Lisa De La Torre Narrative: This is a consult note which will function as the history and physical examination report. Vita is a 24-year-old [id number] female with a history of hypertension (usually takes a medication but has not been taking it. States she has been exercising and her blood pressure has not been that bad. Earlier this evening she tripped and fell landing on her left hand earlier this evening. She sustained an injury to the lateral border of her left hand and an abrasion to her knee. She denies other injury. She states that she fell with all of her force on her left hand. She endorses swelling bruising and radiating pain around her 5th metacarpal and distal forearm. She denies any loss of consciousness. She is a healthcare worker. She had a negative COVID-19 test little over week ago as part of the healthcare worker routine testing. She denies any fevers chills nausea or vomiting or dry cough. No allergies to antibiotics. She denies any numbness or tingling. She notes decreased range of motion and difficulty moving her finger. Holding it still helps. Ice helps. Meds Home Medications and Allergies Home Medications Medication Instructions Recorded Confirmed Type doxycycline hyclate 100 mg PO BID #20 tab 05/24/19 Rx Allergies Allergy/AdvReac Type Severity Reaction Status Date / Time phenytoin [From Dilantin] Allergy Hives Verified 06/10/19 18:59 Review of Systems Review of Systems Narrative: Denies fevers chills nausea or vomiting. No history of asthma. History of hypertension. ROS: Yes All systems reviewed with the patient and are negative except as otherwise documented Constitutional Constitutional: Denies as per HPI, Denies system reviewed; no additional complaints, except as documented, Denies anorexia, Denies body ache(s), Denies chills, Denies daytime sleepiness, Denies difficulty sleeping, Denies excessive sweating, Denies fatigue, Denies fever(s), Denies frequent falls, Denies headache(s), Denies increased appetite, Denies lack of energy, Denies malaise, Denies night sweats, Denies poor appetite, Denies snoring, Denies stops breathing during sleep, Denies weakness, Denies weight gain, Denies weight loss and Denies other ENT Ears, Nose, Mouth, and Throat: No headache(s) Respiratory Respiratory: Denies snoring Neurologic Neurologic: Denies frequent falls, Denies headache(s) and Denies weakness Endocrine Endocrine: Denies excessive sweating and Denies fatigue Exam Vital Signs (past 8 hours): - 08/29/19 18:19 Pulse Rate 81 Respiratory Rate 20 Blood Pressure 184/98 H Pulse Oximetry 98 Oxygen Delivery Method Room Air Narrative Exam Narrative: Alert oriented female in no acute distress. HEENT exam normocephalic atraumatic Respiratory exam lungs clear to auscultation bilaterally Heart exam regular rate and rhythm Abdomen obese nontender Musculoskeletal examination. Right upper extremity full range of motion fingers wrist elbow shoulder. No tenderness to palpation. Sensation grossly intact to light touch. Left upper extremity swelling and tenderness along the 5th metacarpal. Reduced range of motion small finger with intact sensation. There are small abrasions along the 5th finger than with substantial swelling difficult to fully analyze the patient's natural cascade. Is able to demonstrate active wrist flexion and extension. Mild tenderness again along the ulnar border of the left hand due to proximity to the injury site and swelling. Forearm is soft. Radial pulses palpable. Full elbow flexion and extension. Assessment & Plan Assessment and plan (1) Fracture of base of fifth metacarpal bone of left hand: Problem details: Left comminuted 5th metacarpal base fracture. There is comminution likely intra-articular extension of the base of the 5th metacarpal with angulation. Discussed these fractures are inherently unstable and malunion can result in functional deficits including shortening and malrotation. Recommend closed reduction percutaneous pinning. We will schedule this for Tuesday in the OR at [facility]. Due to the COVID-19 pandemic preoperative testing will include COVID-19 test. Patient had a negative test over a week ago and will require another 1 within 72 hours of surgery. This will be gathered this evening in the ER. The patient denies any symptoms. Discussed that with hand and finger fractures balancing stable fixation with early range of motion is important to avoid stiffness which is an inherent risk with these fractures either treated by surgical or nonsurgical means. Fixation is indicated in the next week or 2 and would be much more difficult waiting longer than this. Patient understands and agrees with the plan. The risks and benefits of the procedure have been discussed with the patient even opportunity to ask questions. The risks of surgery include but are not limited to infection, malunion, nonunion, persistence of pain, damage to nerves and blood vessels, posttraumatic arthritis, DVT, PE, cardiopulmonary complications and . The patient expressed a thorough understanding of the risks and benefits of surgery and has elected to proceed. Consent was signed today. Qualifiers: Encounter type: initial encounter Fracture alignment: displaced Fracture type: closed Qualified Code(s): S62.317A - Displaced fracture of base of fifth metacarpal bone, left hand, initial encounter for closed fracture Current visit: Yes Status: Acute (2) Morbid obesity with BMI of 40.0-44.9, adult: Problem details: Patient currently on exercise program. Current visit: Yes Status: Acute
[2019-08-29 21:24] VITALS: BP 161/89; PULSE 77; RESP 18; O2SAT 98
[2019-08-30 21:17] LABS: COVID19 Sendout Not Detected (Not Detect)
== END 2019-08-29 21:24 | disposition home or self-care (01) ==
PROVIDERS: Emergency Provider Student in an Organized Health Care Education/Training Program; PCP Nurse Practitioner Family
DX: S62.317A Displaced fracture of base of fifth metacarpal bone, left hand, initial encounter for closed fracture (principal); W19.XXXA Unspecified fall, initial encounter; I10 Essential (primary) hypertension; E66.01 Morbid (severe) obesity due to excess calories; Z68.41 Body mass index [BMI] 40.0-44.9, adult; Z11.59 Encounter for screening for other viral diseases
CPT/HCPCS: 29125; 73090; 73130; 87635; 99284

== ENCOUNTER 2019-08-31 06:43 | Day surgery (SDC) | payer OTHER, SELFPAY ==
--- NOTE | 2019-08-29 21:17 | CONS_ITS ---
History of Present Illness Consult details Date Patient Seen: 08/29/19 Time Patient Seen: 21:17 Chief complaint: Fell/ Hurt left hand/wrist Reason for consult: Left 5th metacarpal fracture Requesting provider: Lisa De La Torre Narrative: This is a consult note which will function as the history and physical examination report. Vita is a 24-year-old [id number] female with a history of hypertension (usually takes a medication but has not been taking it. States she has been exercising and her blood pressure has not been that bad. Earlier this evening she tripped and fell landing on her left hand earlier this evening. She sustained an injury to the lateral border of her left hand and an abrasion to her knee. She denies other injury. She states that she fell with all of her force on her left hand. She endorses swelling bruising and radiating pain around her 5th metacarpal and distal forearm. She denies any loss of consciousness. She is a healthcare worker. She had a negative COVID-19 test little over week ago as part of the healthcare worker routine testing. She denies any fevers chills nausea or vomiting or dry cough. No allergies to antibiotics. She denies any numbness or tingling. She notes decreased range of motion and difficulty moving her finger. Holding it still helps. Ice helps. Meds Home Medications and Allergies Home Medications Medication Instructions Recorded Confirmed Type doxycycline hyclate 100 mg PO BID #20 tab 05/24/19 Rx Allergies Allergy/AdvReac Type Severity Reaction Status Date / Time phenytoin [From Dilantin] Allergy Hives Verified 06/10/19 18:59 Review of Systems Review of Systems Narrative: Denies fevers chills nausea or vomiting. No history of asthma. History of hypertension. ROS: Yes All systems reviewed with the patient and are negative except as otherwise documented Constitutional Constitutional: Denies as per HPI, Denies system reviewed; no additional complaints, except as documented, Denies anorexia, Denies body ache(s), Denies chills, Denies daytime sleepiness, Denies difficulty sleeping, Denies excessive sweating, Denies fatigue, Denies fever(s), Denies frequent falls, Denies headache(s), Denies increased appetite, Denies lack of energy, Denies malaise, Denies night sweats, Denies poor appetite, Denies snoring, Denies stops breathing during sleep, Denies weakness, Denies weight gain, Denies weight loss and Denies other ENT Ears, Nose, Mouth, and Throat: No headache(s) Respiratory Respiratory: Denies snoring Neurologic Neurologic: Denies frequent falls, Denies headache(s) and Denies weakness Endocrine Endocrine: Denies excessive sweating and Denies fatigue Exam Vital Signs (past 8 hours): - 08/29/19 18:19 Pulse Rate 81 Respiratory Rate 20 Blood Pressure 184/98 H Pulse Oximetry 98 Oxygen Delivery Method Room Air Narrative Exam Narrative: Alert oriented female in no acute distress. HEENT exam normocephalic atraumatic Respiratory exam lungs clear to auscultation bilaterally Heart exam regular rate and rhythm Abdomen obese nontender Musculoskeletal examination. Right upper extremity full range of motion fingers wrist elbow shoulder. No tenderness to palpation. Sensation grossly intact to light touch. Left upper extremity swelling and tenderness along the 5th metacarpal. Reduced range of motion small finger with intact sensation. There are small abrasions along the 5th finger than with substantial swelling difficult to fully analyze the patient's natural cascade. Is able to demonstrate active wrist flexion and extension. Mild tenderness again along the ulnar border of the left hand due to proximity to the injury site and swelling. Forearm is soft. Radial pulses palpable. Full elbow flexion and extension. Assessment & Plan Assessment and plan (1) Fracture of base of fifth metacarpal bone of left hand: Problem details: Left comminuted 5th metacarpal base fracture. There is comminution likely intra-articular extension of the base of the 5th metacarpal with angulation. Discussed these fractures are inherently unstable and malunion can result in functional deficits including shortening and malrotation. Recommend closed reduction percutaneous pinning. We will schedule this for Tuesday in the OR at [facility]. Due to the COVID-19 pandemic preoperative testing will include COVID-19 test. Patient had a negative test over a week ago and will require another 1 within 72 hours of surgery. This will be gathered this evening in the ER. The patient denies any symptoms. Discussed that with hand and finger fractures balancing stable fixation with early range of motion is important to avoid stiffness which is an inherent risk with these fractures either treated by surgical or nonsurgical means. Fixation is indicated in the next week or 2 and would be much more difficult waiting longer than this. Patient understands and agrees with the plan. The risks and benefits of the procedure have been discussed with the patient even opportunity to ask questions. The risks of surgery include but are not limited to infection, malunion, nonunion, persistence of pain, damage to nerves and blood vessels, posttraumatic arthritis, DVT, PE, cardiopulmonary complications and . The patient expressed a thorough understanding of the risks and benefits of surgery and has elected to proceed. Consent was signed today. Qualifiers: Encounter type: initial encounter Fracture alignment: displaced Fracture type: closed Qualified Code(s): S62.317A - Displaced fracture of base of fifth metacarpal bone, left hand, initial encounter for closed fracture Current visit: Yes Status: Acute (2) Morbid obesity with BMI of 40.0-44.9, adult: Problem details: Patient currently on exercise program. Current visit: Yes Status: Acute
[2019-08-31] VITALS (10 sets, daily range): BP systolic 100–127; BP diastolic 41–74; PULSE 61–90; RESP 12–28; TEMP 36.6–37.3; O2SAT 95–98
--- NOTE | 2019-08-31 07:38 | PM.PREOP ---
Pre-operative Note COVID-19 COVID-19 status: Negative Result date/Date tested (Pos, Neg/Pending): 08/29/19 Interval Note History & Physical reviewed/Exam performed by Physician: Yes Changes to H&P: No
[2019-08-31] MEDS: LACTATED RINGERS 1,000 ML 42 ML IV (07:44)
[2019-08-31] MEDS: CEFAZOLIN 2 GM/100 ML FROZ.PIGGY IV (07:44)
[2019-08-31] MEDS: BUPIVACAINE 0.25% W/ EPI 30 ML VIAL INJ (08:13)
[2019-08-31] MEDS: fentaNYL 100 MCG/2 ML INJ 50 MCG IV (08:54)
--- NOTE | 2019-08-31 08:58 | PM.OP.1 ---
Operative Date/Time/Diagnoses Date of procedure: 08/31/19 Time of procedure: 08:00 Pre-op diagnosis: 1. Closed displaced fracture 5th metacarpal bone left-hand S62.317A Post-op diagnosis: same Procedure & Clinicians Procedure: Closed reduction internal fixation of fracture metacarpal base fracture left-hand CPT code 95737 Same procedure as scheduled: Yes Indications: Patient is a 24-year-old female that fell onto her left hand on 08/29/2019. She states she landed with all her weight on it. She had immediate pain swelling deformity she was brought to the hospital where x-rays were taken demonstrated a displaced 5th metacarpal base fracture. This was significantly angulated and due to the inherent instability at the base of the 5th metacarpal was indicated for closed reduction percutaneous fixation. The risks benefits and alternatives of procedure were discussed with the patient in detail including risks for pin tract infection, malunion, nonunion, stiffness, nerve or vessel injury, persistent pain, dissatisfaction with this procedure, symptomatic hardware or broken hardware. Also discussed risk of general anesthesia including pulmonary cardiac risks DVT and pulmonary embolism. Consent was signed. Surgeon: Katie Miller Click Yes if Unassisted: Yes Anesthesia Type: General and Local (10 cc 0.25% Marcaine with epinephrine) Operative Notes Findings: Angulated 5th metacarpal base fracture, left hand. This was closed reduced with for traction and stabilized with 3 x045 K-wires. Two from the 5th to 4th metacarpal and 1 from the 5th metacarpal to the hamate Closure Type: not applicable Specimen(s): none sent Prosthetic devices, grafts, tissues, transplants, or devices: 045 K-wire x3 Applied: other (Splint) Estimated Blood Loss (mL): 0 Blood products transfused: none Tourniquet time (min): 0 Procedure in detail: Patient was seen in the preoperative area the site of surgery was marked and informed consent was confirmed. The patient was brought back to the operating room by the anesthesia team. General anesthesia was administered. Patient was positioned supine on operative table with the left upper extremity on hand table. A nonsterile brachial tourniquet was placed this was not elevated. The left upper extremities prepped and draped in the standard sterile fashion. A formal time-out procedure was performed confirming the patient's side and site of surgery and administration of appropriate preoperative antibiotics. All were in agreement. Attention was turned to the left hand. The fluoroscopy unit was brought in and x-rays obtained a demonstrating angulated 5th metacarpal base fracture. Using longitudinal traction and gentle manipulation angulation was corrected and the fracture reduced. Fracture was then transfixed with 3 x 045 K-wires. Two transfixed the 5th metacarpal to the 4-th, and a 3rd wire from the 5th metacarpal to the hamate. Images were obtained in AP lateral and 30 degree pronation images demonstrating appropriate alignment of the fracture and hardware placement. Digit rotation and cascade were appropriate. The pins were cut and bent and pin caps placed. A well-padded ulnar gutter splint was placed in safe position. Patient was woken from anesthesia and taken to recovery room in good condition. All counts were correct Complications: none Post-operative Condition: stable Disposition: PACU Plan for aftercare: Nonweightbearing left upper extremity. Keep splint clean dry and intact. Follow up in 10-14 days in clinic for splint removal and conversion to removable forearm based ulnar gutter splint and starting additional range of motion. Pins will remain in place 5-6 weeks.
[2019-08-31] MEDS: ONDANSETRON 4 MG/2 ML INJ IV (09:04)
[2019-08-31] MEDS: METOCLOPRAMIDE 10 MG/2 ML INJ IV (09:05)
--- NOTE | 2019-08-31 09:08 | SUR.PHASEI ---
Assumed care from Delia, pt dry heaving, medicated with ondansetron, then reglan, given cool wash cloth to forehead and queaze ease to bedside, pt gradually felt better and back to tolerating ice chips.
--- NOTE | 2019-08-31 09:39 | SUR.PHASEII ---
In Phase 2, given apple sauce and water. VSS
[2019-08-31] MEDS: HYDROCODONE/ACET 5/325 TABLET 1 TAB PO (09:50)
--- NOTE | 2019-08-31 10:20 | SUR.PHASEII ---
denies any further px or n/v. tolerated oral intake to include 1 pain medication w/o issues. independent dressing, escorted to ED entrance via [facility] to car
== END 2019-08-31 10:20 | disposition home or self-care (01) ==
PROVIDERS: PCP Nurse Practitioner Family; Referring Provider Nurse Practitioner Family; Visit Provider Orthopaedic Surgery Foot and Ankle Surgery
PROC: (CPT 26608; principal; 2019-08-31 07:45)
DX: S62.317A Displaced fracture of base of fifth metacarpal bone, left hand, initial encounter for closed fracture (principal); W19.XXXA Unspecified fall, initial encounter
CPT/HCPCS: 26608; J0690; J1100; J1885; J2250; J2405; J2704; J2765; J3010

== ENCOUNTER 2019-10-05 20:23 | Emergency (ER) | payer OTHER, SELFPAY ==
[2019-10-05 20:26] VITALS: BP 148/72; PULSE 76; RESP 16; TEMP 37; O2SAT 96; BMI 45.8
--- NOTE | 2019-10-05 20:35 | DI.RAD.S_ITS ---
PROCEDURE: XR HAND LT MIN 3V INDICATIONS: Had recent Ortho surgery and accidentally removed pin in lopez TECHNIQUE: 3 views of the hand(s) acquired. COMPARISON: [facility], CR, XR FOREARM LT 2V, 08/29/2019, 18:26. [facility], CR, XR HAND LT MIN 3V, 08/29/2019, 18:26. FINDINGS: Bones: 2 percutaneous pins transfix the ulnar side of the left hand. One pin transfixes the base of left fifth metacarpal and the hamate. The second percutaneous pin transfixes the base of fifth metacarpal and base of fourth metacarpal. No hardware fracture or loosening identified. No significant callus formation identified. Fracture line of the proximal left fifth metacarpal is still well visualized. Carpal bones are otherwise normally aligned. No suspicious bony lesions. Soft tissues: No suspicious soft tissue calcifications. IMPRESSION: Status post percutaneous pin fixation of proximal left fifth metacarpal fracture. Dictated by: Milo Del Toro M.D. on 10/05/2019 at 22:12 Approved by: Milo Del Toro M.D. on 10/05/2019 at 22:15
--- NOTE | 2019-10-05 21:35 | ED.GENADULT ---
HPI - General Adult General Chief complaint: Extremity Injury, Upper Stated complaint: ripped a surgical pin out of her left hand Time Seen by Provider: 10/05/19 21:21 Source: patient Mode of arrival: Family Vehicle Limitations: no limitations History of Present Illness HPI narrative: 24-year-old female who underwent 3 K-wire placements in her left hand for surgical repair of a broken bone here for evaluation could she states that 1 of those K-wires was caught on a piece of clothing and came out. She reports no other injuries. Came in to make sure that there was nothing that needed to be done. Related Data Home Medications Medication Instructions Recorded Confirmed Celexa 10 mg PO NOW 08/31/19 08/31/19 Previous Rx's Medication Instructions Recorded hydrocodone-acetaminophen [[place]] 1 tab PO Q6H PRN #14 tab 08/31/19 Allergies Allergy/AdvReac Type Severity Reaction Status Date / Time phenytoin [From Dilantin] Allergy Hives Verified 08/31/19 07:22 Review of Systems Musculoskeletal Comments: No left hand pain Integumentary/Breasts Comments: No bleeding from the K where side to the left hand Neurologic Comments: No change in any neurologic status Patient History Medical History Depression (Acute) Hypertension (Acute) Tachycardia (Acute) Tonsillitis (Acute) Social History household members: spouse Smoking Status: Former smoker alcohol intake: current Smoking Status: Former smoker alcohol intake frequency: a few times a month Substance Use Type: does not use Exam Initial Vital Signs Initial Vital Signs: Vital Signs Temperature 98.6 F 10/05/19 20:26 Pulse Rate 76 10/05/19 20:26 Respiratory Rate 16 10/05/19 20:26 Blood Pressure 148/72 H 10/05/19 20:26 Pulse Oximetry 96 10/05/19 20:26 Skin Other: Left hand has to remain K-wires without signs of infection or redness. Extrem Other: K-wires from left hand without signs of infection Psych Appearance: well kempt Course Orders Ordered: ED Orders 10/05/19 20:35 XR hand LT min 3V Stat Vital Signs Vital signs: Vital Signs - 8 hr 10/05/19 20:26 Temperature 98.6 F Pulse Rate 76 Respiratory Rate 16 Blood Pressure 148/72 H Pulse Oximetry 96 Medical Decision Making Imaging Data Extremity x-ray #1: Radiologist's Impression: [address] [address] XRay Report Signed Patient: Vita Hernandez [facility]#: [id number] : 1995Acct:[id number] Age/Sex: 24 / FDate of Service: 10/05/19 Loc: ED Accession Number: [id number] Procedure: XR hand LT min 3V Ordering Provider: Ricky López D.O. PROCEDURE: XR HAND LT MIN 3V INDICATIONS: Had recent Ortho surgery and accidentally removed pin in lopez TECHNIQUE: 3 views of the hand(s) acquired. COMPARISON: [facility], CR, XR FOREARM LT 2V, 08/29/2019, 18:26. [facility], CR, XR HAND LT MIN 3V, 08/29/2019, 18:26. FINDINGS: Bones: 2 percutaneous pins transfix the ulnar side of the left hand. One pin transfixes the base of left fifth metacarpal and the hamate. The second percutaneous pin transfixes the base of fifth metacarpal and base of fourth metacarpal. No hardware fracture or loosening identified. No significant callus formation identified. Fracture line of the proximal left fifth metacarpal is still well visualized. Carpal bones are otherwise normally aligned. No suspicious bony lesions. Soft tissues: No suspicious soft tissue calcifications. IMPRESSION: Status post percutaneous pin fixation of proximal left fifth metacarpal fracture. Dictated by: Milo Del Toro M.D. on 10/05/2019 at 22:12 Approved by: Milo Del Toro M.D. on 10/05/2019 at 22:15 [facility] Narrative Medical decision making narrative: Dr. Miller aware of the removal of the K-wire. She reported that nothing emergent needed to happen. She will follow the patient up as scheduled in the clinic. Patient was informed of this. Discharge Plan Departure Patient Disposition: Home Clinical Impression: Post-operative complication Qualifiers: Surgical complication system/body Area: [id number] Encounter type: initial encounter Discharge Date/Time: 10/06/19 00:18 Activity Restrictions/Additional Instructions: Continue all of the postoperative instructions given to you by Orthopedics. Keep all of your scheduled medical appointments. Return to the emergency department for any new or worsening symptoms Prescriptions: No Action Celexa tablet 10 mg PO NOW RF: 0 hydrocodone-acetaminophen [[place]] 5-325 mg tablet 1 tab PO Q6H PRN (Reason: pain) Qty: 14 RF: 0 Referrals: Arlin Jasso ARNP [Primary Care Provider] -
--- NOTE | 2019-10-05 22:06 | PC.NURSE ---
PT states broke Left hand 5th metatarsal and had surgery on the 30 of August. Tonight wasn't wearing brace caught pin on blankets and pulled pin out of hand. Pt denies pain. CMS intact, + radial pulse.
== END 2019-10-06 00:18 | disposition home or self-care (01) ==
PROVIDERS: Emergency Provider Emergency Medicine; PCP Nurse Practitioner Family
DX: T81.9XXA Unspecified complication of procedure, initial encounter (principal)
CPT/HCPCS: 73130; 99283

== ENCOUNTER 2020-05-31 00:56 | Emergency (ER) | payer OTHER, SELFPAY ==
[2020-05-31 01:00] VITALS: BP 174/91; PULSE 84; O2SAT 96
--- NOTE | 2020-05-31 01:03 | ED.GENADULT ---
HPI - General Adult General Chief complaint: Neuro Symptoms/Deficit Stated complaint: Difficulty seeing and no feeling in right hand Time Seen by Provider: 05/31/20 00:57 Source: patient Mode of arrival: Ambulatory Limitations: no limitations History of Present Illness HPI narrative: Patient is a 25-year-old female who arrives to the emergency department for complaints of vision disturbances and also tingling in her right hand. Patient states symptoms occurred a couple hours prior to arrival here in the emergency department. States she was sitting on the couch a difference [facility] when she started noticing that her vision was off. It is hard for her to describe exactly which she is seeing. She states that which she is seeing is just not clear. She states that she has to ?focus hard ?in order to see what she is trying to look at. She states that is not a double vision. She also noticed some tingling on the right side of her mouth. Also noticed tingling in her right hand. She states she did have a ?seizure disorder? as a child. She has not had any seizures for very long time and was told that she ?grew out of them ?she has never been on any medications for seizures. 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 Although she states that she never had a headache during that time. She thinks that potentially her symptoms have improved somewhat since the onset. Related Data Home Medications Medication Instructions Recorded Confirmed Celexa 10 mg PO NOW 08/31/19 08/31/19 Previous Rx's Medication Instructions Recorded hydrocodone-acetaminophen [[place]] 1 tab PO Q6H PRN #14 tab 08/31/19 Allergies Allergy/AdvReac Type Severity Reaction Status Date / Time phenytoin [From Dilantin] Allergy Hives Verified 05/31/20 01:09 Review of Systems Constitutional Constitutional: Denies fever(s) and Denies headache(s) Eyes Eyes: Reports blurry vision, Reports change in vision, Denies diplopia, Denies loss of vision and Denies spots in vision ENT Ears, Nose, Mouth, and Throat: Denies vertigo, Denies dizziness, Denies headache(s), Denies disequilibrium and Denies sore throat Cardiovascular Cardiovascular: Denies chest pain and Denies dyspnea Respiratory Respiratory: Denies dyspnea Gastrointestinal Gastrointestinal: Denies abdominal pain, Denies nausea and Denies vomiting Genitourinary Genitourinary: Denies dysuria Genitourinary: Denies dysuria Musculoskeletal Musculoskeletal: Denies arthralgias, Denies myalgias and Reports tingling Integumentary/Breasts Skin/Breast: Denies rash Neurologic Neurologic: Denies abnormal movements, Denies abnormal speech, Denies behavioral changes, Denies vertigo, Denies dizziness, Denies headache(s), Denies lack of coordination, Denies loss of vision, Reports tingling and Denies disequilibrium Psychiatric Psychiatric: Denies behavioral changes Hematologic/Lymphatic On Anticoagulants: No Allergic/Immunologic Allergic/Immunologic: Denies urticaria Patient History Medical History Depression Hypertension Tachycardia Tonsillitis Social History household members: spouse Smoking Status: Former smoker alcohol intake: current Smoking Status: Former smoker alcohol intake frequency: a few times a month Substance Use Type: does not use Exam Initial Vital Signs Initial Vital Signs: Vital Signs Pulse Rate 84 05/31/20 01:00 Blood Pressure 174/91 H 05/31/20 01:00 Pulse Oximetry 96 05/31/20 01:00 Const General: cooperative, comfortable and well developed Limitations: mental status not altered HENMT Head: normal to inspection and normocephalic Eyes Pupils: PERRL EOM: EOM intact bilaterally Resp Effort & Inspection: normal respiratory effort Auscultation: clear to auscultation bilaterally Cardio Rate: regular rate Rhythm: regular rhythm GI Inspection: non-distended Palpation: soft Skin Lesions: no lesions Rashes: no rashes Neuro General: patient alert, patient awake and patient oriented x3 Cognition: normal cognition Speech: speech normal Gait: normal gait Motor: muscle tone normal throughout Coordination: [id number] test normal Other: Patient reports decreased sensation to light touch to the right side of her face compared to left otherwise her cranial nerves are unremarkable. She reports decreased sensation to the right hand compared to the left otherwise her sensation testing is unremarkable. Extrem General: normal to inspection and capillary refill normal Psych Appearance: grossly normal and well kempt Course Orders Ordered: ED Orders 05/31/20 01:15 CT head/brain wo con Stat Vital Signs Vital signs: Vital Signs - 8 hr 05/31/20 01:00 05/31/20 01:04 05/31/20 02:15 Temperature 98.2 F Pulse Rate 84 85 71 Respiratory Rate 18 17 Blood Pressure 174/91 H 174/91 H 132/77 Pulse Oximetry 96 97 97 Medical Decision Making Imaging Data CT scan - head: Radiologist's Impression: Preliminary report No acute intracranial process MDM Narrative Medical decision making narrative: Low suspicion for TIA or CVA. All of her reported neurologic symptoms are subjective. There is no objective findings on the exam. Her exam is not consistent with Sargent's palsy. She denies any trauma. Her head CT is unremarkable. This could potentially be an atypical migraine. I feel that we can hold on further workup for now and have the patient contact her for follow-up. She was given return precautions and follow-up instructions. She expressed understanding and agreement. Discharge Plan Departure Patient Disposition: Home Clinical Impression: Alteration in vision, Arm paresthesia, right Activity Restrictions/Additional Instructions: I recommend that you continue all of your medications as directed. On Tuesday contact your primary provider for a follow-up to discuss any further workup or specialist referral like we discussed. Return to the emergency department for any new or worsening symptoms Prescriptions: No Action Celexa tablet 10 mg PO NOW RF: 0 hydrocodone-acetaminophen [[place]] 5-325 mg tablet 1 tab PO Q6H PRN (Reason: pain) Qty: 14 RF: 0 Referrals: Arlin Jasso ARNP [Primary Care Provider] -
[2020-05-31 01:04] VITALS: BP 174/91; PULSE 85; RESP 18; TEMP 36.8; O2SAT 97; BMI 16.9
--- NOTE | 2020-05-31 01:15 | DI.CT.S_ITS ---
PROCEDURE: CT HEAD/BRAIN WO CON INDICATIONS: Vision disturbance, right arm numbness TECHNIQUE: Noncontrast 4.5 mm thick angled axial sections acquired from the foramen magnum to the vertex, with coronal and sagittal reformats. For radiation dose reduction, the following was used: automated exposure control, adjustment of mA and/or kV according to patient size. COMPARISON: None. FINDINGS: Image quality: There is artifact associated with the metallic body or demonstration hardware. Artifact from the metallic hardware is reduced by metal reconstruction algorithm. CSF spaces: Basal cisterns are patent. No extra-axial fluid collections. Ventricles are normal in size and shape. Brain: No midline shift. No intracranial masses or hemorrhage. Alcocer-white matter interface is normal. Skull and face: Calvarium and visualized facial bones are intact, without suspicious lesions. Sinuses: Visualized sinuses and mastoids are clear. IMPRESSION: Mildly limited study, without an acute intracranial abnormality. Note: No significant discrepancy from the preliminary report. Dictated by: Sukh Ramachandran M.D. on 05/31/2020 at 7:29 Approved by: Sukh Ramachandran M.D. on 05/31/2020 at 7:31
[2020-05-31 02:15] VITALS: BP 132/77; PULSE 71; RESP 17; O2SAT 97
== END 2020-05-31 02:16 | disposition home or self-care (01) ==
PROVIDERS: Emergency Provider Emergency Medicine; PCP Nurse Practitioner Family
DX: H54.7 Unspecified visual loss (principal); R20.2 Paresthesia of skin; I10 Essential (primary) hypertension
CPT/HCPCS: 70450; 99283; 99284

== ENCOUNTER 2020-08-06 09:33 | Emergency (ER) | payer OTHER, SELFPAY ==
--- NOTE | 2020-08-06 09:39 | ED_ITS ---
HPI - General Adult General Chief complaint: Skin/Abscess/Foreign Body Stated complaint: Right side abd abscess Time Seen by Provider: 08/06/20 09:35 Source: patient Mode of arrival: Ambulatory Limitations: no limitations History of Present Illness HPI narrative: Patient is a 25-year-old female here for evaluation of redness and swelling which she thinks is an abscess and cellulitis to her lower abdomen. She has had issues like this in the past. She used to be on sounds like a prophylactic dose of doxycycline but has since stopped that under the advice of her providers. She states she has had abscesses drained in the past and other times just received antibiotics. The last time this happened she received doxycycline is seem to take care of all of her symptoms. She does see a door to door sales representative. She stated that she was a week away from getting in to see her provider and because of the discomfort she decided to come for evaluation. Related Data Home Medications Medication Instructions Recorded Confirmed Celexa 10 mg PO NOW 08/31/19 08/31/19 Previous Rx's Medication Instructions Recorded hydrocodone-acetaminophen [[place]] 1 tab PO Q6H PRN #14 tab 08/31/19 doxycycline hyclate 100 mg PO BID 7 Days #14 tab 08/06/20 Allergies Allergy/AdvReac Type Severity Reaction Status Date / Time phenytoin [From Dilantin] Allergy Hives Verified 05/31/20 01:09 Review of Systems Constitutional Constitutional: Denies fatigue, Denies fever(s) and Denies headache(s) Eyes Eyes: Denies change in vision ENT Ears, Nose, Mouth, and Throat: Denies headache(s) and Denies sore throat Cardiovascular Cardiovascular: Denies chest pain and Denies dyspnea Respiratory Respiratory: Denies dyspnea Gastrointestinal Gastrointestinal: Denies abdominal pain, Denies nausea and Denies vomiting Genitourinary Genitourinary: Denies dysuria Genitourinary: Denies dysuria Musculoskeletal Musculoskeletal: Denies arthralgias and Denies myalgias Integumentary/Breasts Comments: Redness and swelling to lower abdomen Neurologic Neurologic: Denies behavioral changes and Denies headache(s) Psychiatric Psychiatric: Denies behavioral changes Endocrine Endocrine: Denies fatigue Hematologic/Lymphatic On Anticoagulants: No Allergic/Immunologic Allergic/Immunologic: Denies urticaria Patient History Medical History (Updated 08/06/20 @ 09:56 by Ricky López DO) Depression Hypertension Tachycardia Tonsillitis Social History household members: spouse Smoking Status: Former smoker alcohol intake: current Smoking Status: Former smoker alcohol intake frequency: a few times a month Substance Use Type: does not use Exam Initial Vital Signs Initial Vital Signs: Vital Signs Temperature 98.4 F 08/06/20 09:42 Pulse Rate 87 08/06/20 09:42 Respiratory Rate 18 08/06/20 09:42 Blood Pressure 186/111 H 08/06/20 09:42 Pulse Oximetry 96 08/06/20 09:42 Const General: cooperative and comfortable Limitations: mental status not altered HENMT Head: normal to inspection and normocephalic Resp Effort & Inspection: normal respiratory effort Cardio Rate: regular rate GI Inspection: large pannus Skin Other: Patient with a large area of redness consistent with cellulitis on her lower abdomen on a pannus. She has a small area approximately 4 cm x 3 cm of red/purple area. No active drainage. Minimal induration around this area. Neuro General: patient alert and patient awake Cognition: normal cognition Extrem General: normal to inspection and capillary refill normal Psych Appearance: grossly normal and well kempt Course Orders Ordered: Discontinued Medications Doxycycline Hyclate (Doxycycline Hyclate 100 Mg Tablet) 100 mg PO NOW ONE Stop: 08/06/20 09:50 Vital Signs Vital signs: Vital Signs - 8 hr 08/06/20 09:42 Temperature 98.4 F Pulse Rate 87 Respiratory Rate 18 Blood Pressure 186/111 H Pulse Oximetry 96 Medical Decision Making [facility] Narrative Medical decision making narrative: Patient is nontoxic appearing. She has an obvious cellulitis on her lower abdomen. The small area of purple/deeper red has a very small with any abscess underneath. This was confirmed with a bedside ultrasound. She states that doxycycline has helped her in the past. She was given a 1st dose here. Will send a prescription for the remainder to the pharmacy of her choice. She was given return precautions. She expressed understanding and agreement. Discharge Plan Departure Patient Disposition: Home Clinical Impression: Cellulitis Instructions: DI for Cellulitis -- Adult Activity Restrictions/Additional Instructions: You have an obvious skin infection called cellulitis in your lower abdomen. There is a small area that potentially has a very small (less than 1 cm) abscess underneath. I recommend that we treat you with antibiotics. You were given your 1st dose here and a prescription was sent to the [facility] pharmacy per your request. Recommend you contact your primary provider for a follow-up. Return to the emergency department for any new or worsening symptoms Prescriptions: New doxycycline hyclate 100 mg tablet 100 mg PO BID 7 Days Qty: 14 RF: 0 No Action Celexa tablet 10 mg PO NOW RF: 0 hydrocodone-acetaminophen [[place]] 5-325 mg tablet 1 tab PO Q6H PRN (Reason: pain) Qty: 14 RF: 0 Referrals: Debra Johnston ARNP [Primary Care Provider] -
[2020-08-06 09:42] VITALS: BP 186/111; PULSE 87; RESP 18; TEMP 36.9; O2SAT 96; BMI 45.8
[2020-08-06] MEDS: DOXYCYCLINE HYCLATE 100 MG TABLET PO (09:56)
[2020-08-06 10:23] VITALS: BP 126/60; PULSE 73; RESP 14; O2SAT 97
== END 2020-08-06 10:24 | disposition home or self-care (01) ==
PROVIDERS: Emergency Provider Emergency Medicine; PCP Nurse Practitioner Family
DX: L03.311 Cellulitis of abdominal wall (principal)
CPT/HCPCS: 99283

== ENCOUNTER 2020-09-09 21:55 | Emergency (ER) | payer OTHER, SELFPAY ==
[2020-09-09 22:09] VITALS: BP 172/97; PULSE 89; RESP 14; TEMP 37.1; O2SAT 97; BMI 45.4
--- NOTE | 2020-09-09 22:31 | DI.RAD.S_ITS ---
PROCEDURE: XR KNEE RT 3V INDICATIONS: worsening right knee pain, no obvious injury TECHNIQUE: 3 views of the knee were acquired. COMPARISON: None. FINDINGS: Bones: No fractures or dislocations. No suspicious bony lesions. Mild medial, lateral and patellofemoral degenerative narrowing. Lateral patellar subluxation is present. Prominent periarticular osteophytes are noted. Soft tissues: Mild joint effusion. No suspicious soft tissue calcifications. IMPRESSION: Arthritic changes with effusion. No visualized acute fracture or dislocation. However, if clinical concern and/or pain persist, short interval imaging followup in 7-10 days is recommended, as occult injury cannot be definitively excluded. Dictated by: Pauly Newman M.D. on 09/10/2020 at 8:52 Approved by: Pauly Newman M.D. on 09/10/2020 at 8:53
[2020-09-09 23:54] VITALS: BP 131/62; PULSE 74; RESP 22; O2SAT 99
--- NOTE | 2020-09-10 03:29 | ED.LOWEXIN ---
HPI - Extremity Injury (Lower) General Chief Complaint: Extremity Injury, Lower Stated Complaint: rt knee pain Time Seen by Provider: 09/09/20 22:01 Source: patient Mode of arrival: Ambulatory Limitations: no limitations History of Present Illness HPI Narrative: 25F former smoker without significant medical history presents with significant other and a chief complaint of right medial knee pain for many weeks. She denies any specific injury but states she has been working out pretty hard including lower extremity, cardio and lifting. She states her pain seems to be worse when she bends or lifts heavy objects and improves with rest. She states it is located only on her right medial knee. She has attempted to get in with her primary care provider but her appointment was canceled and bumped back a few weeks hence her visit to us. She denies numbness, tingling or weakness. She denies any history of the same. She denies any perception of instability of her knee. She denies any significant swelling, redness or warmth. She has had no fever or chills MD complaint: knee injury Onset (ago): week(s) Severity: mild Relieving factors: rest Exacerbating factors: weight bearing, movement and palpation Associated symptoms: ambulatory Other symptoms: none Treatments prior to arrival: cold therapy and NSAIDS Related Data Home Medications Medication Instructions Recorded Confirmed Celexa 10 mg PO NOW 08/31/19 08/31/19 Previous Rx's Medication Instructions Recorded hydrocodone-acetaminophen [[place]] 1 tab PO Q6H PRN #14 tab 08/31/19 ketorolac 10 mg PO Q6H PRN #14 tab 09/09/20 Allergies Allergy/AdvReac Type Severity Reaction Status Date / Time phenytoin [From Dilantin] Allergy Hives Verified 05/31/20 01:09 Review of Systems Constitutional Constitutional: Denies chills, Denies fatigue, Denies fever(s), Denies frequent falls, Denies lethargy and Denies weakness Eyes Eyes: Denies change in vision, Denies eye discharge, Denies irritation and Denies loss of vision ENT Ears, Nose, Mouth, and Throat: Denies change in voice, Denies dizziness, Denies neck pain, Denies sore throat and Denies throat swelling Cardiovascular Cardiovascular: Denies chest pain, Denies irregular heart rhythm, Denies lightheadedness, Denies palpitations, Denies dyspnea, Denies dyspnea on exertion and Denies orthopnea Respiratory Respiratory: Denies cough, Denies dyspnea, Denies dyspnea on exertion and Denies wheezing Gastrointestinal Gastrointestinal: Denies abdominal pain, Denies change in bowel habits, Denies diarrhea, Denies nausea and Denies vomiting Musculoskeletal Musculoskeletal: Reports arthralgias, Denies neck pain and Denies numbness Integumentary/Breasts Skin/Breast: Denies pruritus, Denies erythema, Denies rash and Denies wounds Neurologic Neurologic: Denies behavioral changes, Denies confusion, Denies dizziness, Denies frequent falls, Denies loss of vision, Denies numbness and Denies weakness Psychiatric Psychiatric: Denies anxiety, Denies behavioral changes, Denies confusion, Denies depression, Denies homicidal ideation and Denies suicidal ideation Endocrine Endocrine: Denies fatigue, Denies flushing and Denies palpitations Hematologic/Lymphatic Hematologic/Lymphatic: Denies easy bruising Allergic/Immunologic Allergic/Immunologic: Denies urticaria, Denies throat swelling and Denies wheezing Patient History Medical History Depression Hypertension Tachycardia Tonsillitis Social History household members: spouse Smoking Status: Former smoker alcohol intake: current Smoking Status: Former smoker alcohol intake frequency: a few times a month Substance Use Type: does not use Exam Narrative Exam Narrative: GEN: AOx3 and in mild distress EYES: Pupils are equal, round, and reactive to light and accommodation. Extraoccular muscles are intact bilaterally. There is no subconjunctival hemorrhage or exudate. CHEST: Lungs are clear to auscultation bilaterally and free of wheezes, rales, or rhonchi. Heart rate is regular rhythm, there are no murmurs, clicks, rubs, or gallops. There is no chest wall tenderness. ABD: Abdomen is soft and nontender. There is no guarding or rebound. Bowel sounds are normal in all 4 quadrants. There is no mass or organomegaly. EXT: Full painless range of motion, no swelling, erythema or ligamentous instability. There is some tenderness to palpation along the medial joint line of the right knee SKIN: Warm, pink, and dry. No erythema or rash Initial Vital Signs Initial Vital Signs: Vital Signs Temperature 98.7 F 09/09/20 22:09 Pulse Rate 89 09/09/20 22:09 Respiratory Rate 14 09/09/20 22:09 Blood Pressure 172/97 H 09/09/20 22:09 Pulse Oximetry 97 09/09/20 22:09 Course Orders Ordered: ED Orders 09/09/20 22:31 XR knee RT 3V Stat Vital Signs Vital signs: Vital Signs - 8 hr 09/09/20 22:09 09/09/20 23:54 Temperature 98.7 F Pulse Rate 89 74 Respiratory Rate 14 22 Blood Pressure 172/97 H 131/62 Pulse Oximetry 97 99 MDM - Extremity Injury (Lower) MDM Narrative Medical decision making narrative: Chronic knee pain in the absence of any obvious injury, this is likely related to the increase intensity and frequency of her workouts. There is no ligamentous instability or joint effusion, x-ray unremarkable, no indication for knee immobilizer. Patient is given return precautions and encouraged to follow-up closely with her primary care provider Discharge Plan Departure Patient Disposition: Home Clinical Impression: Right knee sprain Qualifiers: Encounter type: initial encounter Involved ligament of knee: medial collateral ligament Qualified Code(s): S83.411A - Sprain of medial collateral ligament of right knee, initial encounter Instructions: DI for Knee Sprain Activity Restrictions/Additional Instructions: *You have been diagnosed with [right knee pain, your exam and x-rays are very reassuring] *What to do: *Please continue to take your regular medications as directed. [ x] New medication prescriptions sent to your pharmacy: [ [place] [ ] New medication written as a paper prescription [ ] No new medications given *Please follow up with your primary care provider in 2-3 days, call for an appointment. Let them know you were seen in the Emergency Department and that we ask that you be seen in follow up. We will electronically transmit a record of today's note if your PCP is in our system *If you do not have a primary care provider please contact the [facility] Resource line at [phone]. They will ask some questions about your medical history and help get you set up with a doctor in the community. *Return to Emergency Department if you should have any new, worsening or concerning symptoms, such as [fever greater than 101 F, shaking chills, worsening pain, persistent vomiting or other bothersome symptoms] Prescriptions: New ketorolac 10 mg tablet 10 mg PO Q6H PRN (Reason: pain) Qty: 14 RF: 0 No Action Celexa tablet 10 mg PO NOW RF: 0 hydrocodone-acetaminophen [[place]] 5-325 mg tablet 1 tab PO Q6H PRN (Reason: pain) Qty: 14 RF: 0 Referrals: Debra Johnston ARNP [Primary Care Provider] -
== END 2020-09-09 23:54 | disposition home or self-care (01) ==
PROVIDERS: Emergency Provider Emergency Medicine; PCP Nurse Practitioner Family
DX: S83.411A Sprain of medial collateral ligament of right knee, initial encounter (principal); X50.0XXA Overexertion from strenuous movement or load, initial encounter
CPT/HCPCS: 73562; 99281; 99283

== ENCOUNTER 2020-12-01 15:58 | Emergency (ER) | payer OTHER, SELFPAY ==
[2020-12-01 16:14] VITALS: BP 190/95; PULSE 85; RESP 18; TEMP 37; O2SAT 98; BMI 47.2
--- NOTE | 2020-12-01 16:47 | PC.NURSE ---
Correction to triage. pt states she has been trying to see a counselor because of SI. pt states a few days ago she pictured herself jumping off a bridge. pt states she has no intention on harming herself. pt states she called pcp because she doesn't want to have these thoughts. pt denies wanting to harm herself. I provided pt info on on demand salud. that is provided through [facility]. pt was unaware of this opportunity and downloaded the salud immediately.
--- NOTE | 2020-12-01 16:54 | ED.PSYCH ---
HPI - Psych General Chief Complaint: Psychiatric Symptoms Stated Complaint: SI Time Seen by Provider: 12/01/20 16:05 Source: patient Mode of arrival: EMS History of Present Illness HPI Narrative: Patient is a 25-year-old female. She was brought in by the [facility] for evaluation of suicidal ideation. Patient states that she is not currently suicidal. Not homicidal. Her story was that she contacted her primary doctor to try to get resource is as far is helping her with her depression. She has had a history of depression in the past. She did mention that she occasionally has thoughts of suicide but she states she would never act on these symptoms. She apparently mentioned this to the nurse on the phone. She states that she had leave a message. When they tried to call back she stated that she was taking a shower. She then got a phone call from her 's command stating that the police and EMS were in route to her house for concerns of hurting herself. She stated that she met the EMS and the police outside of her house. They have been in the local area since 2017. Related Data Home Medications Medication Instructions Recorded Confirmed Celexa 10 mg PO NOW 08/31/19 08/31/19 Previous Rx's Medication Instructions Recorded hydrocodone 5 mg-acetaminophen 325 1 tab PO Q6H PRN #14 tab 08/31/19 mg tablet ([place]) ketorolac 10 mg tablet 10 mg PO Q6H PRN #14 tab 09/09/20 Allergies Allergy/AdvReac Type Severity Reaction Status Date / Time phenytoin [From Dilantin] Allergy Hives Verified 05/31/20 01:09 Review of Systems Constitutional Constitutional: Reports system reviewed and no additional complaints, except as documented Cardiovascular Cardiovascular: Reports system reviewed and no additional complaints, except as documented Respiratory Respiratory: Reports system reviewed and no additional complaints, except as documented Musculoskeletal Musculoskeletal: Reports system reviewed and no additional complaints, except as documented Psychiatric Psychiatric: Reports as per HPI Hematologic/Lymphatic On Anticoagulants: No Patient History Medical History (Updated 12/01/20 @ 17:19 by Ricky López DO) Depression Hypertension Tachycardia Tonsillitis Social History household members: spouse Smoking Status: Former smoker alcohol intake: current Smoking Status: Former smoker alcohol intake frequency: a few times a month Substance Use Type: does not use Exam Initial Vital Signs Initial Vital Signs: Vital Signs Temperature 98.6 F 12/01/20 16:14 Pulse Rate 85 12/01/20 16:14 Respiratory Rate 18 12/01/20 16:14 Blood Pressure 190/95 H 12/01/20 16:14 Pulse Oximetry 98 12/01/20 16:14 HENMT Head: normal to inspection and normocephalic Resp Effort & Inspection: normal respiratory effort Cardio Rate: regular rate Skin General: no rashes or lesions noted Neuro General: patient alert, patient awake, patient oriented x3 and moves all extremities Extrem General: normal to inspection Psych Appearance: grossly normal and well kempt Mood: congruent mood Affect: normal affect Attitude: cooperative Thought Process: normal Thought Content: suicidality Course Orders Ordered: ED Orders 12/01/20 16:06 Acetaminophen Stat Complete Blood Count AUTO DIFF Stat Comprehensive Metabolic Panel Stat Ethanol (ETOH) Stat Lipase Stat Salicylate Stat 12/01/20 16:08 Test Urine Stat Thyroid Stimulating Hormone Stat 12/01/20 16:09 Consult to LETTER STAMPING MACHINE OPERATOR - Director Digital Communications Stat Vital Signs Vital signs: Vital Signs - 8 hr 12/01/20 16:14 Temperature 98.6 F Pulse Rate 85 Respiratory Rate 18 Blood Pressure 190/95 H Pulse Oximetry 98 MDM - Psych MDM Narrative Medical decision making narrative: Patient is not suicidal. Not homicidal. Is not clinically intoxicated. Has a GCS of 15. She has had history of depression and fleeting suicidal thoughts in the past. She does not want to be admitted to the hospital she just needs resource is in order to help her follow-up with a mental health provider. She was seen by social work here in the emergency department. Please see social Work note for more complete details. I do not feel the patient needs admitted to the hospital. She does not want to be admitted to the hospital. She does not meet criteria for an involuntary admission. She would like to go home. She was given resources. Her was at bedside and agrees with this. She was given return precautions. Discharge Plan Departure Patient Disposition: Home Clinical Impression: Depression Instructions: Depression Activity Restrictions/Additional Instructions: Please use the information that you are provided today by social work to help with establishing a mental health provider here in the area. You can also use [place] There also a good resource. It will probably be several weeks before you get in to see someone. Please return to the emergency department for any new or worsening symptoms. Continue all of your medications as directed. Prescriptions: No Action Celexa tablet 10 mg PO NOW RF: 0 hydrocodone-acetaminophen [[place]] 5-325 mg tablet 1 tab PO Q6H PRN (Reason: pain) Qty: 14 RF: 0 ketorolac 10 mg tablet 10 mg PO Q6H PRN (Reason: pain) Qty: 14 RF: 0 Referrals: Debra Johnston ARNP [Primary Care Provider] -
--- NOTE | 2020-12-01 17:30 | CM.SWNOTE ---
RETAIL MARKETING SPECIALIST Assessment RETAIL MARKETING SPECIALIST - [employer] Assessment RETAIL MARKETING SPECIALIST/[employer] Assessment Time Spent with Patient Start date 12/01/20 Visit Start Time 16:05 End date 12/01/20 Visit End Time 16:45 Total time Care Management spent on 40 patient visit-in minutes Mental Health Screening Include Onset, Duration, Intensity Presenting Problem Patient presents to the ED via EMS with concern for SI. Patient endorses miscommunication that she does not have current SI and does not have plan but EMS and PCP were under this impression Precipitating Event(s) Patient endorses she called the nurse hotline and returned a call back when she was in the shower and then EMS, LE and the Fire department showed up at her home with concern for patient's SI. Patient endorses she lost her job recently and her and her have been discussing divorce, patient endorses increasing depression over the last three weeks Patient Strengths Patient is seeking help Current Behavioral Health Provider(s) Patient is seeking MH provider Include Facility, Provider, Ph. # Psych. Hx Mental Health and Chemical Patient endorses depression Dependency Family Hx of Behavioral Abuse Patient endorses that she is far away from her family and her parents are having issues right now Psychiatric Hospitalizations (date(s)/ no hx. location) Psychosocial information & Support Patient is a 25 y/o female who Systems resides in [place]. 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 Legal Concerns Legal Matters - Outstanding Issues None reported Mental Status Orientation (Person/Place/Time) A/Ox4 Stated Mood tired Affect (Congruent with Mood?) Anxious, full range, congruent with mood Thought Content - Specify/Describe Patient denies obsessions, Obsessions, Delusions, Hallucinations delusions, and hallucinations Thought Processes (Uzkhyqk-Dqpfbvwo-Qptv coherent Ejlsubre-Uxadmppn-Gkvuedwstv- Rdrnhvbjqwzyso-Cqchadd-Pgjapbkwumuk- Thought Blocking) Speech (Rhuovm-Eecp-Fzoecvg-Rapid-Soft- rapid/normal Loud-Pressured) Motor (Lojmns-Xqlnsesef-Krns-Other) normal Insight (Ycne-Djtz-Mjuv/Limited) fair Judgement (Bqdd-Dqvm-Ajes/Limited) fair Impulse Control (Adequate-Impaired) adequate Memory (Joispmcny-Tnilkt-Jqylko, intact Impaired-Intact) Concentration (Intact-Impaired) intact Attention (Intact-Impaired) intact Behavior (Appropriate-Inappropriate) appropriate Risk Assessment Suicidal Ideation (Plan) Yes Homicidal Ideation (Plan) No Comment Patient denies HI. Patient endorses daily fleeting thoughts of SI over the last three weeks and has thought of walking into the ocean or jumping off a bridge but does not have current SI and does not want to follow through with thoughts. Patient denies current SI. Patient endorses she wants to seek help before it gets worse. Intervention Intervention RETAIL MARKETING SPECIALIST enters room to meet with patient. Patient endorses that she contacted a nurse hotline to seek help due to her depression and SI and the series of events escalated with first assistant response to her home. Patient endorses she missed a call from her doctor and her doctor contacted 911 and patient was greeted at door by LE and EMS. Patient endorses that she has been struggling with depression and has had ongoing thoughts of SI but she is not seeking voluntary inpatient hospitalization. Patient endorses that she thinks EMS and PCP thought she was having current thoughts of SI with plan. Patient endorses she feels safe at home and endorses no plan to harm self. RETAIL MARKETING SPECIALIST discusses outpatient MH providers, crisis numbers, [facility] follow up call and RETAIL MARKETING SPECIALIST follow up call and patient indicates agreement and understanding . It is the opinion of this RETAIL MARKETING SPECIALIST that patient is safe to d/c to home. RETAIL MARKETING SPECIALIST reviews the above with ED provider Dr. López who indicates agreement and understanding and discusses resources further with patient and spouse. Plan RA Plan Patient to d/c to home when medically clear with spouse with MH outpatient resources and crisis lines, RETAIL MARKETING SPECIALIST and [facility] VALENTINE Mcmullen
[2020-12-01 17:41] VITALS: BP 165/84; PULSE 81; RESP 16; O2SAT 97
== END 2020-12-01 17:41 | disposition home or self-care (01) ==
PROVIDERS: Emergency Provider Emergency Medicine; PCP Nurse Practitioner Family
DX: F32.9 Major depressive disorder, single episode, unspecified (principal); R45.851 Suicidal ideations
CPT/HCPCS: 99284

== ENCOUNTER 2021-08-31 19:07 | Emergency (ER) | payer OTHER, SELFPAY ==
[2021-08-31 20:13] VITALS: BP 124/77; PULSE 78; RESP 16; TEMP 36.7; O2SAT 97; BMI 43.6
[2021-08-31] MEDS: SODIUM CHLORIDE 0.9% 1,000 ML 1000 ML IV (20:52)
[2021-08-31 20:54] LABS: Add Manual Diff / Slide Review NO; Basophils Absolute Auto 0 /uL (0-100); Basophils Percent Auto 0.2 % (0-2); Eosinophils Absolute Auto 100 /uL (0-450); Eosinophils Percent Auto 0.9 % (2-4); Hematocrit 42.3 % (36-46); Hemoglobin 14.7 g/dL (12.0-16.0); Lymphocytes Absolute Auto 2800 /uL (1100-4500); Lymphocytes Percent Auto 33.6 % (25-40); Mean Corpuscular HGB Conc 34.7 % (30-36); Mean Corpuscular Hemoglobin 32.8 PG (26-34); Mean Corpuscular Volume 94.5 fL (80-100); Monocytes Absolute Auto 700 /uL (0-900); Monocytes Percent Auto 8.4 % (3-14); Neutrophils Absolute Auto 4700 /uL (1500-7000); Neutrophils Percent Auto 56.9 % (50-75); Platelet Count 253 X10^3/uL (150-400); Red Blood Cell Count 4.47 X10^6/uL (4.0-5.2); White Blood Cell Count 8.2 X10^3/uL (4.5-11.0)
[2021-08-31 21:09] LABS: Alanine Aminotransferase 52 IU/L (<35); Albumin 4.5 g/dL (3.5-5.0); Albumin Globulin Ratio 1.3 (1.0-2.8); Alkaline Phosphatase 73 U/L (38-126); Aspartate Aminotransferase 42 IU/L (14-36); BUN Creatinine Ratio 14.1 (6-22); Blood Urea Nitrogen 10 mg/dL (7-17); Calcium 9.1 mg/dL (8.4-10.2); Carbon Dioxide 18 mmol/L (22-32); Chloride 109 mmol/L (98-107); Estimated Glomerular Filt Rate > 60 mL/min (>60); Globulin 3.6 g/dL (1.7-4.1); Glucose 89 mg/dL (70-100); HEMOLYSIS 21 (0-50); Potassium 3.9 mmol/L (3.4-5.1); Sodium 139 mmol/L (137-145); Total Protein 8.1 g/dL (6.3-8.2)
--- NOTE | 2021-08-31 22:29 | ED_ITS ---
HPI - Dizziness General Chief Complaint: Dizziness Stated Complaint: POST OPERATIVE DEHYDRATION BYPASS SURGERY Time Seen by Provider: 08/31/21 20:46 History of Present Illness HPI Narrative: 26-year-old female nonsmoker with history of relatively recent gastric bypass presents with nausea, vomiting and feels weak and lightheaded, she is concerned that she has become dehydrated again. She admittedly has had difficulty adjusting her diet in the aftermath of the surgery and feels like she may have eaten some food or drink that has triggered her nausea. She denies any fever chills and has no pain. She has had no runny nose, sore throat or cough. She denies any chest pain or shortness of breath. She has had no diarrhea, constipation or obvious urinary complaints Related Data Home Medications Medication Instructions Recorded Confirmed Celexa 10 mg PO NOW 08/31/19 08/31/19 Previous Rx's Medication Instructions Recorded hydrocodone 5 mg-acetaminophen 325 1 tab PO Q6H PRN #14 tab 08/31/19 mg tablet (Americus) ketorolac 10 mg tablet 10 mg PO Q6H PRN #14 tab 09/09/20 cephalexin 500 mg capsule 500 mg PO BID #10 cap 08/31/21 fluconazole 150 mg tablet 150 mg PO Q3D #2 tab 09/01/21 fluconazole 150 mg tablet 150 mg PO Q3D #2 tab 09/01/21 fluconazole 150 mg tablet 150 mg PO Q3D #2 tab 09/01/21 Allergies Allergy/AdvReac Type Severity Reaction Status Date / Time phenytoin [From Dilantin] Allergy Hives Verified 08/31/21 20:19 ibuprofen AdvReac Unknown Verified 08/31/21 20:19 Review of Systems Review of Systems Narrative: GENERAL: Denies chills, fatigue, malaise, fever, sweats. HEENT: Denies sinus pain, ear pain, sore throat, difficulty swallowing, dizziness. RESPIRATORY: Denies dyspnea, cough, wheezing, hemoptysis, sputum. CARDIOVASCULAR: Denies chest pain, palpitations, orthopnea, edema, GASTROINTESTINAL: See HPI : Denies dysuria, frequency, incontinence, hematuria, urinary retention. MUSCULOSKELETAL: denies weakness, joint pain, or bony pain SKIN: Denies rash, skin lesions, or other NEUROLOGIC: Denies weakness, headache, numbness, change in speech, confusion, seizures, incoordination. PSYCHIATRIC: No concerning psychosocial issues. 12 point review of systems is negative except for those stated above Patient History Medical History Depression Hypertension Tachycardia Tonsillitis Social History household members: spouse Smoking Status: Former smoker alcohol intake: current Smoking Status: Former smoker alcohol intake frequency: a few times a month Substance Use Type: does not use Exam Narrative Exam Narrative: GENERAL: [26] year old patient appears stated age. Well-developed patient, in mild distress. HEAD: Atraumatic. Normocephalic. EYES: Pupils equal round and reactive. Extraocular motions intact. No scleral icterus. No injection or drainage. ENT: Nose without bleeding, purulent drainage. Throat without erythema, tonsillar hypertrophy or exudate. Airway patent. NECK: Trachea midline. Non tender CARDIOVASCULAR: Regular rate and rhythm without murmurs, gallops, or rubs. RESPIRATORY: Clear to auscultation. Breath sounds equal bilaterally. No wheezes, rales, or rhonchi. GASTROINTESTINAL: Abdomen soft, non-tender, nondistended. EXTREMITIES: No edema or joint tenderness. BACK: Nontender without deformity or crepitance. No flank tenderness. NEURO: AOx3. SKIN: No rash or erythema of visible areas Initial Vital Signs Initial Vital Signs: Vital Signs Temperature 98.1 F 08/31/21 20:13 Pulse Rate 78 08/31/21 20:13 Respiratory Rate 16 08/31/21 20:13 Blood Pressure 124/77 08/31/21 20:13 Pulse Oximetry 97 08/31/21 20:13 Course Orders Ordered: Discontinued Medications Sodium Chloride (Normal Saline 0.9%) 1,000 mls @ 1,000 mls/hr IV BOLUS ONE Stop: 08/31/21 21:27 Last Infusion: 08/31/21 23:21 Dose: 0 mls/hr Documented by: Admin: 08/31/21 20:52 Dose: 1,000 mls/hr Documented by: [email or web address] Reevaluation(s) Reevaluation #1: Patient has near complete resolution of symptoms after above-stated therapies Vital Signs Vital signs: Vital Signs - 8 hr 08/31/21 20:13 Temperature 98.1 F Pulse Rate 78 Respiratory Rate 16 Blood Pressure 124/77 Pulse Oximetry 97 MDM - Dizziness Lab Data Result diagrams: 08/31/21 20:45 08/31/21 20:45 Labs: Lab Results 08/31/21 08/31/21 08/31/21 Range/Units 20:45 20:45 20:49 WBC 8.2 (4.5-11.0) X10^3/uL RBC 4.47 (4.0-5.2) X10^6/uL Hgb 14.7 (12.0-16.0) g/dL Hct 42.3 (36-46) % MCV 94.5 (80-100) fL MCH 32.8 (26-34) PG MCHC 34.7 (30-36) % RDW 13.0 (11.6-14.8) % Plt Count 253 (150-400) X10^3/uL Neut % (Auto) 56.9 (50-75) % Lymph % (Auto) 33.6 (25-40) % [place] % (Auto) 8.4 (3-14) % Eos % (Auto) 0.9 L (2-4) % Baso % (Auto) 0.2 (0-2) % Neut # (Auto) 4700 (4793-0963) /uL Lymph # (Auto) 2800 (3251-6290) /uL [place] # (Auto) 700 (0-900) /uL Eos # (Auto) 100 (0-450) /uL Baso # (Auto) 0 (0-100) /uL Sodium 139 (137-145) mmol/L Potassium 3.9 (3.4-5.1) mmol/L Chloride 109 H (98-107) mmol/L Carbon Dioxide 18 L (22-32) mmol/L BUN 10 (7-17) mg/dL Creatinine 0.71 (0.52-1.04) mg/dL Estimated GFR > 60 (>60) mL/min BUN/Creatinine Ratio 14.1 (6-22) Glucose 89 (70-100) mg/dL Calcium 9.1 (8.4-10.2) mg/dL Total Bilirubin 1.0 (0.2-1.3) mg/dL AST 42 H (14-36) IU/L ALT 52 H (<35) IU/L Alkaline Phosphatase 73 (38-126) U/L Total Protein 8.1 (6.3-8.2) g/dL Albumin 4.5 (3.5-5.0) g/dL Globulin 3.6 (1.7-4.1) g/dL Albumin/Globulin Ratio 1.3 (1.0-2.8) Ur Bilirubin Confirm Negative (Negative) Urine RBC 1-5/hpf (0-5/HPF) Urine WBC 0-1/hpf (0-5/HPF) Ur Squamous Epith Cells 10-30 /hpf H (0-5/HPF) Urine Bacteria Few (2-10) H (None) Urine Mucus 3+ H (Negative) Ur Culture Indicated? Culture not indicate Micro UA Comment * Point of Care Testing Test Results Negative Urine Dip Bedside Urine Glucose Negative Bedside Urine Bilirubin ++ 2 Bedside Urine Ketone + 15 Urine Specific [place] 1.030 Bedside Urine Occult Blood +++ Bedside Urine pH 6.0 Bedside Urine Protein ++ 100 Bedside Urine Urobilinogen 2+ 4mg Bedside Urine Nitrite - Negative Bedside Urine Leukocytes + 70 Esterase Discharge Plan Departure Patient Disposition: Home Clinical Impression: Acute dehydration, UTI (urinary tract infection) Instructions: DI for Urinary Tract Infection (UTI) Activity Restrictions/Additional Instructions: *You have been diagnosed with [acute dehydration and urinary tract infection *What to do: *Please continue to take your regular medications as directed. [x ] New medication prescriptions sent to your pharmacy: [ [facility]] [ ] New medication written as a paper prescription [ ] No new medications given *Please follow up with your primary care provider in 2-3 days, call for an appointment. Let them know you were seen in the Emergency Department and that we ask that you be seen in follow up. We will electronically transmit a record of today's note if your PCP is in our system *If you do not have a primary care provider please contact the [facility] Resource line at [phone]. They will ask some questions about your medical history and help get you set up with a doctor in the community. *Return to Emergency Department if you should have any new, worsening or concerning symptoms, such as [fever greater than 101 F, shaking chills, worsening pain, persistent vomiting or other bothersome symptoms] Prescriptions: New cephalexin 500 mg capsule 500 mg PO BID Qty: 10 0RF fluconazole 150 mg tablet 150 mg PO Q3D Qty: 2 0RF Rx Instructions: may repeat second dose 72 hrs after first dose if symptoms persist fluconazole 150 mg tablet 150 mg PO Q3D Qty: 2 0RF Rx Instructions: may repeat second dose 72 hrs after first dose if symptoms persist fluconazole 150 mg tablet 150 mg PO Q3D Qty: 2 0RF Rx Instructions: may repeat second dose 72 hrs after first dose if symptoms persist No Action Celexa tablet 10 mg PO NOW 0RF hydrocodone-acetaminophen [Americus] 5-325 mg tablet 1 tab PO Q6H PRN (Reason: pain) Qty: 14 0RF ketorolac 10 mg tablet 10 mg PO Q6H PRN (Reason: pain) Qty: 14 0RF Referrals: Debra Johnston ARNP [Primary Care Provider] -
[2021-08-31 23:21] LABS: Ictotest Urine Negative (Negative)
[2021-08-31 23:47] LABS: Bacteria Urine Few (2-10); Mucus Urine 3+ (Negative); RBC Urine 1-5/HPF (0-5/HPF); Squamous Epithelial Cell Urine 10-30 /HPF (0-5/HPF); WBC Urine 0-1/HPF (0-5/HPF)
[2021-09-01] VITALS: BP 139/88; PULSE 64; RESP 16; O2SAT 99
== END 2021-09-01 00:03 | disposition home or self-care (01) ==
PROVIDERS: Emergency Provider Emergency Medicine; PCP Nurse Practitioner Family
DX: E86.0 Dehydration (principal); R11.2 Nausea with vomiting, unspecified; N39.0 Urinary tract infection, site not specified; Z98.84 Bariatric surgery status
CPT/HCPCS: 36415; 80053; 81003; 81015; 81025; 85025; 87086; 96360; 96361; 99284

== ENCOUNTER 2022-01-21 22:18 | Emergency (ER) | payer OTHER, SELFPAY ==
[2022-01-21 22:25] VITALS: BP 175/98; PULSE 98; RESP 18; TEMP 36.7; O2SAT 98
[2022-01-21 23:01] LABS: Add Manual Diff / Slide Review NO; Basophils Absolute Auto 0 /uL (0-100); Basophils Percent Auto 0.4 % (0-2); Eosinophils Absolute Auto 200 /uL (0-450); Eosinophils Percent Auto 2.7 % (2-4); Hematocrit 37.4 % (36-46); Hemoglobin 13.1 g/dL (12.0-16.0); Lymphocytes Absolute Auto 3100 /uL (1100-4500); Mean Corpuscular Hemoglobin 33.2 PG (26-34); Mean Corpuscular Volume 94.8 fL (80-100); Monocytes Absolute Auto 600 /uL (0-900); Neutrophils Absolute Auto 2800 /uL (1500-7000); Neutrophils Percent Auto 41.9 % (50-75); Platelet Count 240 X10^3/uL (150-400); Red Blood Cell Count 3.95 X10^6/uL (4.0-5.2); Red Cell Distribution Width 12.6 % (11.6-14.8); White Blood Cell Count 6.6 X10^3/uL (4.5-11.0)
[2022-01-21 23:09] LABS: Alanine Aminotransferase 36 IU/L (<35); Albumin Globulin Ratio 1.3 (1.0-2.8); Alkaline Phosphatase 91 U/L (38-126); Aspartate Aminotransferase 29 IU/L (14-36); Bilirubin Total 0.5 mg/dL (0.2-1.3); Blood Urea Nitrogen 9 mg/dL (7-17); Calcium 8.3 mg/dL (8.4-10.2); Carbon Dioxide 23 mmol/L (22-32); Chloride 107 mmol/L (98-107); Estimated Glomerular Filt Rate > 60 mL/min (>60); Globulin 3.2 g/dL (1.7-4.1); Glucose 87 mg/dL (70-100); HEMOLYSIS 15 (0-50); Lipase 89 U/L (23-300); Potassium 3.9 mmol/L (3.4-5.1); Sodium 139 mmol/L (137-145); Total Protein 7.2 g/dL (6.3-8.2)
[2022-01-21 23:10] LABS: Bacteria Urine Moderate (10-30); Mucus Urine 2+ (Negative); RBC Urine 1-5/HPF (0-5/HPF); WBC Urine None Seen (0-5/HPF)
[2022-01-21 23:11] LABS: Squamous Epithelial Cell Urine 10-30 /HPF (0-5/HPF)
[2022-01-21 23:12] LABS: Culture Indicated Urine Cult Not Indicated
--- NOTE | 2022-01-21 23:33 | ED_ITS ---
HPI - Abdominal Pain General Chief Complaint: Abdominal Pain Stated Complaint: left upper abd pain Time Seen by Provider: 01/21/22 23:33 Source: patient Mode of arrival: Ambulatory History of Present Illness HPI narrative: 26-year-old female nonsmoker with history of gastric bypass about 6 months ago presents with her in the chief complaint of gradually worsening left upper quadrant pain over the past few weeks. She states that it is slowly worsening and certainly made worse by eating and drinking. She denies any obvious radiation. She is been nauseated but denies any vomiting. She denies any change in her diet or bowels. She states that she called the nursing hotline who suggested she come in for evaluation. In addition to being worse with food and drink she states that her pain seems to worsen when lying on her l eft side. She denies any chest pain or shortness of breath and has had no cough. Related Data Home Medications Medication Instructions Recorded Confirmed Celexa 10 mg PO NOW 08/31/19 08/31/19 Previous Rx's Medication Instructions Recorded hydrocodone 5 mg-acetaminophen 325 1 tab PO Q6H PRN pain #14 tabs 08/31/19 mg tablet (Wilbur) ketorolac 10 mg tablet 10 mg PO Q6H PRN pain #14 tabs 09/09/20 cephalexin 500 mg capsule 500 mg PO BID #10 caps 08/31/21 fluconazole 150 mg tablet 150 mg PO Q3D 2 doses #2 tabs 09/01/21 fluconazole 150 mg tablet 150 mg PO Q3D 2 doses #2 tabs 09/01/21 fluconazole 150 mg tablet 150 mg PO Q3D 2 doses #2 tabs 09/01/21 Allergies Allergy/AdvReac Type Severity Reaction Status Date / Time phenytoin [From Dilantin] Allergy Hives Verified 08/31/21 20:19 ibuprofen AdvReac Unknown Verified 08/31/21 20:19 Review of Systems Review of Systems Narrative: GENERAL: Denies chills, fatigue, malaise, fever, sweats. HEENT: Denies sinus pain, ear pain, sore throat, difficulty swallowing, dizziness. RESPIRATORY: Denies dyspnea, cough, wheezing, hemoptysis, sputum. CARDIOVASCULAR: Denies chest pain, palpitations, orthopnea, edema, GASTROINTESTINAL: See HPI : Denies dysuria, frequency, incontinence, hematuria, urinary retention. MUSCULOSKELETAL: denies weakness, joint pain, or bony pain SKIN: Denies rash, skin lesions, or other NEUROLOGIC: Denies weakness, headache, numbness, change in speech, confusion, seizures, incoordination. PSYCHIATRIC: No concerning psychosocial issues. 12 point review of systems is negative except for those stated above Patient History Medical History Depression Hypertension Tachycardia Tonsillitis Social History household members: spouse Smoking Status: Former smoker alcohol intake: current Smoking Status: Former smoker alcohol intake frequency: a few times a month Substance Use Type: does not use Exam Narrative Exam Narrative: GENERAL: [26] year old patient appears stated age. Well-developed patient, in mild distress. HEAD: Atraumatic. Normocephalic. EYES: Pupils equal round and reactive. Extraocular motions intact. No scleral icterus. No injection or drainage. ENT: Nose without bleeding, purulent drainage. Throat without erythema, tonsillar hypertrophy or exudate. Airway patent. NECK: Trachea midline. Non tender CARDIOVASCULAR: Regular rate and rhythm without murmurs, gallops, or rubs. RESPIRATORY: Clear to auscultation. Breath sounds equal bilaterally. No wheezes, rales, or rhonchi. GASTROINTESTINAL: Abdomen soft, moderate tenderness, nondistended. No guarding or rebound, bowel sounds present in all 4 quadrants EXTREMITIES: No edema or joint tenderness. BACK: Nontender without deformity or crepitance. No flank tenderness. NEURO: AOx3. SKIN: No rash or erythema of visible areas Initial Vital Signs Initial Vital Signs: Vital Signs Temperature 98.1 F 01/21/22 22:25 Pulse Rate 98 H 01/21/22 22:25 Respiratory Rate 18 01/21/22 22:25 Blood Pressure 175/98 H 01/21/22 22:25 Pulse Oximetry 98 01/21/22 22:25 Oxygen Delivery Method 01/21/22 22:25 Course Orders Ordered: ED Orders 01/21/22 22:45 EKG-12 Lead Stat 01/21/22 22:47 Complete Blood Count AUTO DIFF Stat Comprehensive Metabolic Panel Stat Lipase Stat Urine Microscopic Stat 01/22/22 00:34 CT abdomen pelvis w con Stat Discontinued Medications Sodium Chloride (Normal Saline 0.9%) 1,000 mls @ 1,000 mls/hr IV BOLUS ONE Stop: 01/22/22 01:33 Last Admin: 01/22/22 01:03 Dose: 1,000 mls/hr Documented By: TAMMY Pantoprazole Sodium (Pantoprazole 40 Mg Vial) 40 mg IV NOW ONE Stop: 01/22/22 00:35 Last Admin: 01/22/22 01:03 Dose: 40 mg Documented By: TAMMY Vital Signs Vital signs: Vital Signs - 8 hr 01/21/22 22:25 Temperature 98.1 F Pulse Rate 98 H Respiratory Rate 18 Blood Pressure 175/98 H Pulse Oximetry 98 Oxygen Delivery Method Room Air MDM - Abdominal Pain Lab Data Result diagrams: 01/21/22 22:47 01/21/22 22:47 Labs: Lab Results 01/21/22 01/21/22 01/21/22 Range/Units 22:47 22:47 22:47 WBC 6.6 (4.5-11.0) X10^3/uL RBC 3.95 L (4.0-5.2) X10^6/uL Hgb 13.1 (12.0-16.0) g/dL Hct 37.4 (36-46) % MCV 94.8 (80-100) fL MCH 33.2 (26-34) PG MCHC 35.0 (30-36) % RDW 12.6 (11.6-14.8) % Plt Count 240 (150-400) X10^3/uL Neut % (Auto) 41.9 L (50-75) % Lymph % (Auto) 46.0 H (25-40) % [place] % (Auto) 9.0 (3-14) % Eos % (Auto) 2.7 (2-4) % Baso % (Auto) 0.4 (0-2) % Neut # (Auto) 2800 (7496-8152) /uL Lymph # (Auto) 3100 (0191-1381) /uL [place] # (Auto) 600 (0-900) /uL Eos # (Auto) 200 (0-450) /uL Baso # (Auto) 0 (0-100) /uL Sodium 139 (137-145) mmol/L Potassium 3.9 (3.4-5.1) mmol/L Chloride 107 (98-107) mmol/L Carbon Dioxide 23 (22-32) mmol/L BUN 9 (7-17) mg/dL Creatinine 0.45 L (0.52-1.04) mg/dL Estimated GFR > 60 (>60) mL/min BUN/Creatinine Ratio 20.0 (6-22) Glucose 87 (70-100) mg/dL Calcium 8.3 L (8.4-10.2) mg/dL Total Bilirubin 0.5 (0.2-1.3) mg/dL AST 29 (14-36) IU/L ALT 36 H (<35) IU/L Alkaline Phosphatase 91 (38-126) U/L Total Protein 7.2 (6.3-8.2) g/dL Albumin 4.0 (3.5-5.0) g/dL Globulin 3.2 (1.7-4.1) g/dL Albumin/Globulin Ratio 1.3 (1.0-2.8) Lipase 89 (23-300) U/L Urine RBC 1-5/hpf (0-5/HPF) Urine WBC None seen (0-5/HPF) Ur Squamous Epith Cells 10-30 /hpf H (0-5/HPF) Urine Bacteria Moderate (10-30) H (None) Urine Mucus 2+ H (Negative) Ur Culture Indicated? Cult not indicated Point of care testing: Point of Care Testing Test Results Negative Urine Dip Bedside Urine Glucose Negative Bedside Urine Bilirubin - Negative Bedside Urine Ketone - Negative Urine Specific [place] 1.015 Bedside Urine Occult Blood +++ Bedside Urine pH 7 Bedside Urine Protein - Negative Bedside Urine Urobilinogen 1+ 2mg Bedside Urine Nitrite - Negative Bedside Urine Leukocytes - Negative Esterase Imaging Data CT scan - abdomen/pelvis: Radiologist's Impression: [place] [address] CT Scan Report Signed Patient: Vita Hernandez MR#: [id number] : 1995 Acct:[id number] Age/Sex: 26 / F Date of Service: 01/22/22 Loc: ED Accession Number: [id number] ?? Procedure: CT abdomen pelvis w con Ordering Provider: Latrell Bennett D.O. PROCEDURE:? CT ABDOMEN PELVIS W CON ? INDICATIONS:? LUQ pain, recent gastric bypass ? TECHNIQUE:? After the administration of oral and IV contrast, axial sections were acquired from the lung bases to the pubic symphysis.? Coronal and sagittal reformats were performed.? For radiation dose reduction, the following was used:? automated exposure control, adjustment of mA and/or kV according to patient size. ? COMPARISON:? None. ? FINDINGS:? Image quality:? Excellent.? ? Lung bases:? Unremarkable.? ? Heart:? Heart is normal in size. ? ? ABDOMEN: Liver:? There is mild focal fatty infiltration in the anterior left hepatic lobe. Gallbladder:? Within normal limits without calcified gallstones.? ? Biliary ducts:? No biliary ductal dilatation.? ? Pancreas:? Unremarkable.? ? Spleen:? Normal in size.? ? Adrenal Glands:? No adrenal nodules.? ? Kidneys and Ureters:? No hydronephrosis.? ? ? Stomach and Bowel:? Stomach, small bowel loops, and colon are normal in caliber and wall thickness.? Postsurgical changes are demonstrated in stomach consistent with history of gastric bypass.? The appendix is normal in appearance. Peritoneum:? No abnormal intraperitoneal fluid.? No free air.? ? Ventral Wall: ? No hernia.? Abdominal Nodes:? No retroperitoneal or mesenteric adenopathy by size criteria.? Vessels:? Aorta and inferior vena cava are normal in size.? ? PELVIS: Pelvic Organs:? Unremarkable.? ? Bladder:? Unremarkable.? ? Pelvic Nodes: No enlarged lymph nodes.? Miscellaneous: No inguinal hernias are seen. ? ? ? Bones:? Visualized osseous structures demonstrate no suspicious focal lesions. ? IMPRESSION:? ? 1. No definite acute intra-abdominal abnormality.? Specifically, no evidence of bowel obstruction or anastomotic leak.? ? ? Dictated by: Eric Beard M.D. on 01/22/2022 at 1:45 ? ? Approved by: Eric Beard M.D. on 01/22/2022 at 1:56 ? MDM Narrative Medical decision making narrative: Multiple etiologies for patient's symptoms considered include, but not limited to: [Bowel obstruction versus complication of gastric bypass versus kidney stone versus diverticulitis versus other Patient's symptoms improved over duration of stay with above-stated therapies. History, physical exam, labs, imaging, and response to therapies have been reassuring. Findings and discharge diagnosis discussed with patient/family followed by verbalization of understanding Return precautions discussed with patient/family whom verbalize understanding. Pain has been well controlled and patient is tolerating oral hydration. Discharge Plan Departure Patient Disposition: Home Clinical Impression: Abdominal pain Instructions: DI for Abdominal Pain-Adult Activity Restrictions/Additional Instructions: *You have been diagnosed with [abdominal pain] * As we discussed your history and physical exam as well as labs and imaging are very reassuring. There is no evidence of any severe diagnoses that would r equire a specific or immediate intervention. *What to do: *Please continue to take your regular medications as directed. *Please follow up with your primary care provider in 2-3 days, call for an appointment. Let them know you were seen in the Emergency Department and that we ask that you be seen in follow up. We will electronically transmit a record of today's note if your PCP is in our system *Please consider a clear liquid diet for the next 24-48 hours and then slowly advance to regular as tolerated. Also, try to avoid alcohol, nicotine, caffeine, spicy, acidic or fatty foods as this may worsen your symptoms *If you do not have a primary care provider please contact the [facility] Resource line at [phone]. They will ask some questions about your medical history and help get you set up with a doctor in the community. *Return to Emergency Department if you should have any new, worsening or concerning symptoms, such as [fever greater than 101 F, shaking chills, worsening pain, persistent vomiting or other bothersome symptoms] Prescriptions: No Action cephalexin 500 mg capsule 500 mg PO BID Qty: 10 0RF fluconazole 150 mg tablet 150 mg PO Q3D Qty: 2 0RF Rx Instructions: may repeat second dose 72 hrs after first dose if symptoms persist fluconazole 150 mg tablet 150 mg PO Q3D Qty: 2 0RF Rx Instructions: may repeat second dose 72 hrs after first dose if symptoms persist fluconazole 150 mg tablet 150 mg PO Q3D Qty: 2 0RF Rx Instructions: may repeat second dose 72 hrs after first dose if symptoms persist Celexa tablet 10 mg PO NOW hydrocodone-acetaminophen [Wilbur] 5-325 mg tablet 1 tab PO Q6H PRN (Reason: pain) Qty: 14 0RF ketorolac 10 mg tablet 10 mg PO Q6H PRN (Reason: pain) Qty: 14 0RF Referrals: Debra Johnston ARNP [Primary Care Provider] -
--- NOTE | 2022-01-22 00:34 | DI.CT.S_ITS ---
PROCEDURE: CT ABDOMEN PELVIS W CON INDICATIONS: LUQ pain, recent gastric bypass TECHNIQUE: After the administration of oral and IV contrast, axial sections were acquired from the lung bases to the pubic symphysis. Coronal and sagittal reformats were performed. For radiation dose reduction, the following was used: automated exposure control, adjustment of mA and/or kV according to patient size. COMPARISON: None. FINDINGS: Image quality: Excellent. Lung bases: Unremarkable. Heart: Heart is normal in size. ABDOMEN: Liver: There is mild focal fatty infiltration in the anterior left hepatic lobe. Gallbladder: Within normal limits without calcified gallstones. Biliary ducts: No biliary ductal dilatation. Pancreas: Unremarkable. Spleen: Normal in size. Adrenal Glands: No adrenal nodules. Kidneys and Ureters: No hydronephrosis. Stomach and Bowel: Stomach, small bowel loops, and colon are normal in caliber and wall thickness. Postsurgical changes are demonstrated in stomach consistent with history of gastric bypass. The appendix is normal in appearance. Peritoneum: No abnormal intraperitoneal fluid. No free air. Ventral Wall: No hernia. Abdominal Nodes: No retroperitoneal or mesenteric adenopathy by size criteria. Vessels: Aorta and inferior vena cava are normal in size. PELVIS: Pelvic Organs: Unremarkable. Bladder: Unremarkable. Pelvic Nodes: No enlarged lymph nodes. Miscellaneous: No inguinal hernias are seen. Bones: Visualized osseous structures demonstrate no suspicious focal lesions. IMPRESSION: 1. No definite acute intra-abdominal abnormality. Specifically, no evidence of bowel obstruction or anastomotic leak. Dictated by: Eric Beard M.D. on 01/22/2022 at 1:45 Approved by: Eric Beard M.D. on 01/22/2022 at 1:56
[2022-01-22] MEDS: SODIUM CHLORIDE 0.9% 1,000 ML 1000 ML IV (01:03)
[2022-01-22] MEDS: PANTOPRAZOLE 40 MG VIAL IV (01:03)
[2022-01-22 02:34] VITALS: BP 130/70; PULSE 72; RESP 18; O2SAT 97
== END 2022-01-22 02:35 | disposition home or self-care (01) ==
PROVIDERS: Emergency Provider Emergency Medicine; PCP Nurse Practitioner Family
DX: R10.12 Left upper quadrant pain (principal)
CPT/HCPCS: 36415; 74177; 80053; 81003; 81015; 81025; 83690; 85025; 93005; 93010; 96374; 99284; C9113; Q9967